=== PATIENT | male | born 1945 | race Caucasian/White ===

== ENCOUNTER → 2019-11-12 13:34 | Outpatient (BNVA) | payer OTHER, SELFPAY | PROVIDERS: Family Provider Emergency Medicine Emergency Medical Services; PCP Emergency Medicine Emergency Medical Services; Referring Provider Emergency Medicine Emergency Medical Services; Visit Provider Otolaryngology | DX: H61.21 Impacted cerumen, right ear (principal); J34.2 Deviated nasal septum; J31.0 Chronic rhinitis; F17.210 Nicotine dependence, cigarettes, uncomplicated | CPT/HCPCS: 69210; 99214 ==

== ENCOUNTER 2021-09-17 13:21 | Outpatient (CLI) | payer OTHER, SELFPAY ==
--- NOTE | 2021-09-17 13:25 | US_ITS ---
WS: [id number] ULTRASOUND RENAL TECHNIQUE: Ultrasound examination of both kidneys. CLINICAL INFORMATION: CHRONIC KIDNEY DZ STAGE 4 COMPARISON: None. FINDINGS: Technically difficult examination due to bowel gas RIGHT: Right kidney is normal in size and appearance. Echogenicity: Normal. Cortical thickness: 1.0 cm; Normal. Hydronephrosis: None. Perinephric fluid: None. Right kidney measures: 10.6 cm x 4.9 cm x 4.6 cm. LEFT: Left kidney is small and echogenic Echogenicity: Increased Cortical thickness: 0.8 cm Hydronephrosis: None. Perinephric fluid: None. Left kidney measures: 9.1 cm x 3.7 cm x 4.0 cm. Normal visualized aorta. Bladder is decompressed. US/US renal BI* [id number] IMPRESSION: 1. No hydronephrosis in either kidney. 2. Left kidney is small and echogenic. 3. Normal-appearing right kidney. 4. Bladder is decompressed.
== END 2021-09-17 13:22 | disposition home or self-care (01) ==
LOC: RAD 13:23
PROVIDERS: PCP Emergency Medicine Emergency Medical Services; Visit Provider Internal Medicine Nephrology
DX: N18.4 Chronic kidney disease, stage 4 (severe) (principal)
CPT/HCPCS: 76770

== ENCOUNTER → 2022-03-17 12:37 | Outpatient (BNVA) | payer OTHER, SELFPAY | PROVIDERS: PCP Emergency Medicine Emergency Medical Services; Referring Provider Emergency Medicine Emergency Medical Services; Visit Provider Orthopaedic Surgery | DX: M48.062 Spinal stenosis, lumbar region with neurogenic claudication (principal) | CPT/HCPCS: 72100; 99204 ==

== ENCOUNTER 2022-03-22 06:00 | Outpatient (RCR) | payer OTHER, SELFPAY | END 2022-03-29 23:59 | disposition home or self-care (01) | LOC: TPT 06:00 | PROVIDERS: PCP Emergency Medicine Emergency Medical Services; Referring Provider Emergency Medicine Emergency Medical Services; Visit Provider Emergency Medicine Emergency Medical Services | DX: M54.50 Low back pain, unspecified (principal) | CPT/HCPCS: 97110; 97163 ==

== ENCOUNTER → 2022-06-07 15:17 | Outpatient (BNVA) | payer OTHER, SELFPAY | PROVIDERS: PCP Emergency Medicine Emergency Medical Services; Visit Provider Podiatrist Foot & Ankle Surgery | DX: L60.3 Nail dystrophy (principal); E11.8 Type 2 diabetes mellitus with unspecified complications; I73.9 Peripheral vascular disease, unspecified; M20.41 Other hammer toe(s) (acquired), right foot; M20.42 Other hammer toe(s) (acquired), left foot; L30.9 Dermatitis, unspecified; E11.42 Type 2 diabetes mellitus with diabetic polyneuropathy; I83.019 Varicose veins of right lower extremity with ulcer of unspecified site; L97.919 Non-pressure chronic ulcer of unspecified part of right lower leg with unspecified severity | CPT/HCPCS: 11721; 29580; 99214 ==

== ENCOUNTER → 2022-06-14 13:02 | Outpatient (BNVA) | payer OTHER, SELFPAY | PROVIDERS: PCP Emergency Medicine Emergency Medical Services; Visit Provider Podiatrist Foot & Ankle Surgery | DX: E11.8 Type 2 diabetes mellitus with unspecified complications (principal); L60.3 Nail dystrophy; I73.9 Peripheral vascular disease, unspecified; M20.41 Other hammer toe(s) (acquired), right foot; M20.42 Other hammer toe(s) (acquired), left foot; L30.9 Dermatitis, unspecified; E11.42 Type 2 diabetes mellitus with diabetic polyneuropathy; I83.019 Varicose veins of right lower extremity with ulcer of unspecified site; L97.919 Non-pressure chronic ulcer of unspecified part of right lower leg with unspecified severity; E11.622 Type 2 diabetes mellitus with other skin ulcer | CPT/HCPCS: 99214 ==

== ENCOUNTER → 2022-06-23 13:30 | Outpatient (BNVA) | payer OTHER, SELFPAY | PROVIDERS: PCP Emergency Medicine Emergency Medical Services; Visit Provider Podiatrist Foot & Ankle Surgery | DX: E11.622 Type 2 diabetes mellitus with other skin ulcer (principal); L60.3 Nail dystrophy; I73.9 Peripheral vascular disease, unspecified; M20.41 Other hammer toe(s) (acquired), right foot; M20.42 Other hammer toe(s) (acquired), left foot; L30.9 Dermatitis, unspecified; E11.42 Type 2 diabetes mellitus with diabetic polyneuropathy; I83.019 Varicose veins of right lower extremity with ulcer of unspecified site; L97.919 Non-pressure chronic ulcer of unspecified part of right lower leg with unspecified severity | CPT/HCPCS: 99214 ==

== ENCOUNTER → 2022-07-25 12:24 | Outpatient (BNVA) | payer OTHER, SELFPAY | PROVIDERS: PCP Emergency Medicine Emergency Medical Services; Visit Provider Podiatrist Foot & Ankle Surgery | DX: E11.8 Type 2 diabetes mellitus with unspecified complications (principal); L60.3 Nail dystrophy; I73.9 Peripheral vascular disease, unspecified; M20.41 Other hammer toe(s) (acquired), right foot; M20.42 Other hammer toe(s) (acquired), left foot; L30.9 Dermatitis, unspecified; E11.42 Type 2 diabetes mellitus with diabetic polyneuropathy; I83.019 Varicose veins of right lower extremity with ulcer of unspecified site; L97.919 Non-pressure chronic ulcer of unspecified part of right lower leg with unspecified severity; E11.622 Type 2 diabetes mellitus with other skin ulcer | CPT/HCPCS: 99214 ==

== ENCOUNTER → 2022-10-31 12:28 | Outpatient (BNVA) | payer OTHER, SELFPAY | PROVIDERS: PCP Emergency Medicine Emergency Medical Services; Visit Provider Podiatrist Foot & Ankle Surgery | DX: E11.8 Type 2 diabetes mellitus with unspecified complications (principal); I73.9 Peripheral vascular disease, unspecified; E11.42 Type 2 diabetes mellitus with diabetic polyneuropathy; I83.019 Varicose veins of right lower extremity with ulcer of unspecified site; L30.9 Dermatitis, unspecified; M20.42 Other hammer toe(s) (acquired), left foot; M20.41 Other hammer toe(s) (acquired), right foot; L60.3 Nail dystrophy; L97.919 Non-pressure chronic ulcer of unspecified part of right lower leg with unspecified severity; E11.622 Type 2 diabetes mellitus with other skin ulcer | CPT/HCPCS: 99214 ==

== ENCOUNTER → 2022-12-29 12:34 | Outpatient (BNVA) | payer OTHER, SELFPAY | PROVIDERS: PCP Emergency Medicine Emergency Medical Services; Visit Provider Podiatrist Foot & Ankle Surgery | DX: I73.9 Peripheral vascular disease, unspecified (principal); E11.8 Type 2 diabetes mellitus with unspecified complications; L60.3 Nail dystrophy; M20.41 Other hammer toe(s) (acquired), right foot; M20.42 Other hammer toe(s) (acquired), left foot; L30.9 Dermatitis, unspecified; E11.42 Type 2 diabetes mellitus with diabetic polyneuropathy; I83.019 Varicose veins of right lower extremity with ulcer of unspecified site; L97.919 Non-pressure chronic ulcer of unspecified part of right lower leg with unspecified severity; E11.622 Type 2 diabetes mellitus with other skin ulcer | CPT/HCPCS: 11721 ==

== ENCOUNTER → 2023-04-05 10:14 | Outpatient (BNVA) | payer OTHER, SELFPAY | PROVIDERS: PCP Emergency Medicine Emergency Medical Services; Visit Provider Podiatrist Foot & Ankle Surgery | DX: E11.8 Type 2 diabetes mellitus with unspecified complications (principal); L60.3 Nail dystrophy; I73.9 Peripheral vascular disease, unspecified; M20.41 Other hammer toe(s) (acquired), right foot; M20.42 Other hammer toe(s) (acquired), left foot; L30.9 Dermatitis, unspecified; E11.42 Type 2 diabetes mellitus with diabetic polyneuropathy; I83.011 Varicose veins of right lower extremity with ulcer of thigh | CPT/HCPCS: 11721 ==

== ENCOUNTER → 2023-06-01 15:07 | Outpatient (BNVA) | payer OTHER, SELFPAY | PROVIDERS: PCP Emergency Medicine Emergency Medical Services; Visit Provider Nurse Practitioner Family | DX: B07.8 Other viral warts (principal); L57.8 Other skin changes due to chronic exposure to nonionizing radiation; L57.0 Actinic keratosis; D18.01 Hemangioma of skin and subcutaneous tissue; L81.4 Other melanin hyperpigmentation; D22.5 Melanocytic nevi of trunk; L85.3 Xerosis cutis; Z85.828 Personal history of other malignant neoplasm of skin; F17.210 Nicotine dependence, cigarettes, uncomplicated | CPT/HCPCS: 17000; 17003; 17110; 99203; 99406 ==

== ENCOUNTER → 2023-06-07 09:51 | Outpatient (BNVA) | payer OTHER, SELFPAY | PROVIDERS: PCP Emergency Medicine Emergency Medical Services; Visit Provider Podiatrist Foot & Ankle Surgery | DX: E11.8 Type 2 diabetes mellitus with unspecified complications (principal); L60.3 Nail dystrophy; I73.9 Peripheral vascular disease, unspecified; M20.41 Other hammer toe(s) (acquired), right foot; M20.42 Other hammer toe(s) (acquired), left foot; L30.9 Dermatitis, unspecified; E11.42 Type 2 diabetes mellitus with diabetic polyneuropathy | CPT/HCPCS: 11721 ==

== ENCOUNTER → 2023-07-06 11:08 | Outpatient (BNVA) | payer OTHER, SELFPAY | PROVIDERS: PCP Emergency Medicine Emergency Medical Services; Visit Provider Nurse Practitioner Family | DX: B07.8 Other viral warts (principal); R20.9 Unspecified disturbances of skin sensation; L57.8 Other skin changes due to chronic exposure to nonionizing radiation; L57.0 Actinic keratosis; L85.3 Xerosis cutis; L81.4 Other melanin hyperpigmentation; Z85.828 Personal history of other malignant neoplasm of skin | CPT/HCPCS: 99214 ==

== ENCOUNTER → 2023-07-20 10:58 | Outpatient (BNVA) | payer OTHER, SELFPAY | PROVIDERS: PCP Emergency Medicine Emergency Medical Services; Visit Provider Nurse Practitioner Family | DX: B07.8 Other viral warts (principal); L57.8 Other skin changes due to chronic exposure to nonionizing radiation; D18.01 Hemangioma of skin and subcutaneous tissue; L81.4 Other melanin hyperpigmentation | CPT/HCPCS: 17110; 99214 ==

== ENCOUNTER → 2023-08-03 15:00 | Outpatient (BNVA) | payer OTHER, SELFPAY | PROVIDERS: PCP Emergency Medicine Emergency Medical Services; Visit Provider Podiatrist Foot & Ankle Surgery | DX: E11.621 Type 2 diabetes mellitus with foot ulcer (principal); I73.9 Peripheral vascular disease, unspecified; L60.3 Nail dystrophy; M20.41 Other hammer toe(s) (acquired), right foot; M20.42 Other hammer toe(s) (acquired), left foot; L30.9 Dermatitis, unspecified; E11.42 Type 2 diabetes mellitus with diabetic polyneuropathy; L97.524 Non-pressure chronic ulcer of other part of left foot with necrosis of bone | CPT/HCPCS: 11044; 36415; 73630; 80053; 85025; 85651; 86140; 87070; 87075; 87077; 87186; 87205 ==

== ENCOUNTER → 2023-08-21 09:58 | Outpatient (BNVA) | payer OTHER, SELFPAY | PROVIDERS: PCP Emergency Medicine Emergency Medical Services; Visit Provider Nurse Practitioner Family | DX: D48.5 Neoplasm of uncertain behavior of skin (principal); B07.8 Other viral warts; Z85.828 Personal history of other malignant neoplasm of skin; L57.8 Other skin changes due to chronic exposure to nonionizing radiation; L81.4 Other melanin hyperpigmentation; D22.62 Melanocytic nevi of left upper limb, including shoulder; L85.3 Xerosis cutis; L57.0 Actinic keratosis; Z72.0 Tobacco use | CPT/HCPCS: 11102; 17000; 17110; 99213 ==

== ENCOUNTER 2023-09-18 15:05 | Outpatient (CLI) | payer OTHER, SELFPAY ==
--- NOTE | 2023-09-18 15:16 | XRR_ITS ---
PROCEDURE INFORMATION: Exam: XR Left Foot Exam date and time: 09/18/2023 3:28 PM Age: 78 years old Clinical indication: Other: Nonhealing ulcer of left great toe; Additional info: Nonhealing ulcer of left great toe; Bone exposure; R/O osteo TECHNIQUE: Imaging protocol: Radiologic exam of the left foot. Views: 3 or more views. COMPARISON: CR XR foot LT min 3V* [id number] 08/03/2023 3:11 PM FINDINGS: Bones/joints: Mild hallux valgus deformity with superimposed osteoarthritis. Partial resorption of the bony ungual tuft of the distal phalanx of the great toe probably represents osteomyelitis. Soft tissues: Normal. XR/XR foot LT min 3V* [id number] IMPRESSION: Likely osteomyelitis involving the 1st distal phalanx.
[2023-09-18 15:33] LABS: Basophils # 0.1 10^3/uL (0.0-0.1); Basophils % 1.3 %; Eosinophils # 0.2 10^3/uL (0.0-0.8); Eosinophils % 3.6 %; Hematocrit 47.6 % (37-53); Lymphocytes # 0.9 10^3/uL (0.8-4.8); Lymphocytes % 17.7 %; Mean Platelet Volume 10.7 fL (7.4-10.4); Monocytes # 0.4 10^3/uL (0.2-0.9); Monocytes % 7.1 %; Neutrophils # 3.57 10^3/uL (1.8-7.7); Neutrophils % 68.6 %; Nucleated Red Blood Cells % 0 %; Platelet Count 182 10^3/cmm (157-399); Red Blood Count 4.76 10^6/uL (3.85-5.65); Red Cell Distribution Width 14.8 % (12.1-15.1); White Blood Count 5.21 10^3/uL (3.29-11.43)
[2023-09-18 15:58] LABS: Alanine Aminotransferase 15 U/L (0-41); Albumin Level 4.2 g/dL (3.5-5.2); Alkaline Phosphatase 116 U/L (40-130); Aspartate Amino Transferase 17 U/L (0-40); Blood Urea Nitrogen 43 mg/dL (8-23); Calcium 10.4 mg/dL (8.5-10.5); Carbon Dioxide 23 mmol/L (22-29); Chloride 102 mmol/L (98-107); Globulin 4.1 g/dL (1.3-4.6); Glucose 125 mg/dL (65-115); Osmolality Calculated 296 mOsm/kg (285-295); Sodium 137 mmol/L (136-145); Total Bilirubin 0.7 mg/dL (0.15-1.2); Total Protein 8.3 g/dL (6.6-8.7)
[2023-09-18 16:28] LABS: Estmated Average Glucose 163; Hemoglobin A1C 7.3 % (4.0-6.0)
== END 2023-09-18 15:06 | disposition home or self-care (01) ==
PROVIDERS: PCP Emergency Medicine Emergency Medical Services; Visit Provider Thoracic Surgery (Cardiothoracic Vascular Surgery)
DX: E11.52 Type 2 diabetes mellitus with diabetic peripheral angiopathy with gangrene (principal); E11.621 Type 2 diabetes mellitus with foot ulcer; L97.524 Non-pressure chronic ulcer of other part of left foot with necrosis of bone
CPT/HCPCS: 11044; 73630; 80053; 83036; 85025; 86140; 87070; 87077; 87176; 87186; 87205; 99213

== ENCOUNTER → 2023-09-25 13:49 | Outpatient (BNVA) | payer OTHER, SELFPAY | PROVIDERS: PCP Emergency Medicine Emergency Medical Services; Visit Provider Thoracic Surgery (Cardiothoracic Vascular Surgery) | DX: E11.52 Type 2 diabetes mellitus with diabetic peripheral angiopathy with gangrene (principal); E11.621 Type 2 diabetes mellitus with foot ulcer; L97.526 Non-pressure chronic ulcer of other part of left foot with bone involvement without evidence of necrosis | CPT/HCPCS: 11042 ==

== ENCOUNTER → 2023-10-02 15:03 | Outpatient (BNVA) | payer OTHER, SELFPAY | PROVIDERS: PCP Emergency Medicine Emergency Medical Services; Visit Provider Thoracic Surgery (Cardiothoracic Vascular Surgery) | DX: E11.52 Type 2 diabetes mellitus with diabetic peripheral angiopathy with gangrene (principal); E11.621 Type 2 diabetes mellitus with foot ulcer; L97.524 Non-pressure chronic ulcer of other part of left foot with necrosis of bone | CPT/HCPCS: 11044 ==

== ENCOUNTER → 2023-10-03 14:57 | Outpatient (BNVA) | payer OTHER, SELFPAY | PROVIDERS: PCP Emergency Medicine Emergency Medical Services; Visit Provider Nurse Practitioner Family | DX: B07.8 Other viral warts (principal); Z85.828 Personal history of other malignant neoplasm of skin; L57.0 Actinic keratosis | CPT/HCPCS: 17000; 17110; 99213 ==

== ENCOUNTER 2023-10-11 15:14 | Outpatient (CLI) | payer OTHER, SELFPAY ==
[2023-10-11 15:47] LABS: Basophils # 0.1 10^3/uL (0.0-0.1); Basophils % 1.1 %; Eosinophils # 0.2 10^3/uL (0.0-0.8); Eosinophils % 3.7 %; Hematocrit 45.3 % (37-53); Lymphocytes # 0.5 10^3/uL (0.8-4.8); Mean Corpuscular HGB Conc 32.7 g/dL (30-55); Mean Corpuscular Hemoglobin 32.7 pg (27-33); Mean Corpuscular Volume 100.2 fl (82-101); Monocytes # 0.3 10^3/uL (0.2-0.9); Monocytes % 6.2 %; Neutrophils # 4.34 10^3/uL (1.8-7.7); Neutrophils % 79.6 %; Nucleated Red Blood Cells % 0 %; Platelet Count 141 10^3/cmm (157-399); Red Blood Count 4.52 10^6/uL (3.85-5.65); Red Cell Distribution Width 14.6 % (12.1-15.1); White Blood Count 5.45 10^3/uL (3.29-11.43)
[2023-10-11 16:28] LABS: Alanine Aminotransferase 11 U/L (0-41); Albumin Level 3.9 g/dL (3.5-5.2); Alkaline Phosphatase 107 U/L (40-130); Anion Gap 20.3 (5-19); Aspartate Amino Transferase 13 U/L (0-40); Blood Urea Nitrogen 48 mg/dL (8-23); Calcium 10.2 mg/dL (8.5-10.5); Carbon Dioxide 21 mmol/L (22-29); Chloride 103 mmol/L (98-107); Glucose 129 mg/dL (65-115); Osmolality Calculated 304 mOsm/kg (285-295); Potassium 4.3 mmol/L (3.5-5.1); Sodium 140 mmol/L (136-145); Total Bilirubin 0.6 mg/dL (0.15-1.2); Total Protein 7.9 g/dL (6.6-8.7)
== END 2023-10-11 15:15 | disposition home or self-care (01) ==
LOC: LAB 15:15
PROVIDERS: PCP Emergency Medicine Emergency Medical Services; Visit Provider Nurse Practitioner Family
DX: E11.52 Type 2 diabetes mellitus with diabetic peripheral angiopathy with gangrene (principal); E11.621 Type 2 diabetes mellitus with foot ulcer; L97.522 Non-pressure chronic ulcer of other part of left foot with fat layer exposed
CPT/HCPCS: 11042; 36415; 80053; 85025; 99212

== ENCOUNTER → 2023-10-18 13:05 | Outpatient (BNVA) | payer OTHER, SELFPAY | PROVIDERS: PCP Emergency Medicine Emergency Medical Services; Visit Provider Thoracic Surgery (Cardiothoracic Vascular Surgery) | DX: E11.52 Type 2 diabetes mellitus with diabetic peripheral angiopathy with gangrene (principal); E11.621 Type 2 diabetes mellitus with foot ulcer; L97.524 Non-pressure chronic ulcer of other part of left foot with necrosis of bone | CPT/HCPCS: 11044 ==

== ENCOUNTER → 2023-10-23 10:55 | Outpatient (BNVA) | payer OTHER, SELFPAY | PROVIDERS: PCP Emergency Medicine Emergency Medical Services; Visit Provider Thoracic Surgery (Cardiothoracic Vascular Surgery) | DX: E11.621 Type 2 diabetes mellitus with foot ulcer (principal); E11.52 Type 2 diabetes mellitus with diabetic peripheral angiopathy with gangrene; L97.524 Non-pressure chronic ulcer of other part of left foot with necrosis of bone | CPT/HCPCS: 11044; 80048 ==

== ENCOUNTER 2023-11-11 10:39 | Emergency (ER) | payer OTHER, SELFPAY ==
[2023-11-11 11:04] VITALS: BP 159/82; PULSE 104; RESP 18; TEMP 36.8; O2SAT 95; BMI 25.4
[2023-11-11 11:19] LABS: Basophils % 0.4 %; Eosinophils % 0.2 %; Hematocrit 41.1 % (37-53); Lymphocytes # 0.3 10^3/uL (0.8-4.8); Lymphocytes % 3.9 %; Mean Corpuscular HGB Conc 32.4 g/dL (30-55); Mean Corpuscular Hemoglobin 32.8 pg (27-33); Mean Corpuscular Volume 101.2 fl (82-101); Mean Platelet Volume 11.3 fL (7.4-10.4); Monocytes # 0.6 10^3/uL (0.2-0.9); Monocytes % 6.6 %; Neutrophils # 7.38 10^3/uL (1.8-7.7); Neutrophils % 88.1 %; Nucleated Red Blood Cells % 0 %; Platelet Count 128 10^3/cmm (157-399); Red Blood Count 4.06 10^6/uL (3.85-5.65); Red Cell Distribution Width 14.3 % (12.1-15.1); White Blood Count 8.38 10^3/uL (3.29-11.43)
[2023-11-11 11:25] VITALS: BP 159/82; PULSE 84; RESP 15; O2SAT 95
[2023-11-11 11:29] LABS: Add Urine Microscopic? YES; Bilirubin Urine Neg (Negative); Blood Urine 2+ (Negative); Glucose Urine UA 4+ (Normal); Ketones Urine Negative (Negative); Leukocyte Esterase Urine Negative (Negative); Nitrate Urine Negative (Negative); Protein Urine 1+ (Negative); Urine Appearance Clear (CLEAR); Urine Color Straw (Yellow); Urobilinogen Urine Norm (Negative); pH Urine 5 (5-7)
[2023-11-11 11:30] LABS: Add Urine Culture? No; Bacteria Urine TRACE /hpf; Mucus Urine 1+ /hpf; RBC Urine 0-4 /hpf (0-2); WBC Urine RARE /hpf (0-5)
[2023-11-11 11:33] LABS: Alanine Aminotransferase 7 U/L (0-41); Albumin Level 3.2 g/dL (3.5-5.2); Alkaline Phosphatase 110 U/L (40-130); Aspartate Amino Transferase 11 U/L (0-40); Blood Urea Nitrogen 68 mg/dL (8-23); Calcium 10.6 mg/dL (8.5-10.5); Carbon Dioxide 21 mmol/L (22-29); Chloride 101 mmol/L (98-107); Globulin 4.2 g/dL (1.3-4.6); Glucose 164 mg/dL (65-115); Osmolality Calculated 305 mOsm/kg (285-295); Sodium 136 mmol/L (136-145); Total Bilirubin 0.6 mg/dL (0.15-1.2); Total Protein 7.4 g/dL (6.6-8.7)
[2023-11-11 11:34] LABS: Anion Gap 18.2 (5-19); Potassium 4.2 mmol/L (3.5-5.1)
--- NOTE | 2023-11-11 11:49 | ED_ITS ---
HPI - Extremity Problem 2 General: Chief complaint: Extremity Problem,Nontraumatic Stated complaint: Left big toe pain Time Seen by Provider: 11/11/23 11:00 History of Present Illness: Patient presents to the ER with complaints of left foot pain. Patient states he has been seeing the wound clinic every week but has missed the last 2 appointments secondary to weather. Patient is says he is only taken Tylenol for pain and the pain is increased over the last several months. There is been no recent drastic acute change in pain other than the slow progression to worsening pain. Patient now rates the pain 9 out of 10 and says it hurts to walk on the foot. Patient denies any fevers chills purulent drainage streaking etc. Review of Systems 2 General: Reports: 10 or more systems reviewed and unremarkable except in HPI and below PFSH ED 2 PFSH: Medical History Type 2 diabetes mellitus with foot ulcer Family History Other Diabetes Social History Smoking and tobacco/nicotine status: former use of tobacco/nicotine Alcohol intake: never Physical Exam 2 Const: COMMON NORMALS: no acute distress, average body habitus, patient oriented x3, no limitations, healthy appearing, alert and well nourished Neck/C-Spine: COMMON NORMALS: no JVD Chest: COMMONS NORMALS: normal inspection of the chest and normal palpation of entire chest wall Resp: COMMON NORMALS: normal respiratory effort, No retractions, No use of accessory muscles and clear to auscultation bilaterally AUSCULTATION: clear to auscultation bilaterally Cardio: COMMON NORMALS: no JVD, regular rate, regular rhythm, S1 normal heart sound present, S2 normal heart sound present, No gallops present (Cardio), No clicks present (Cardio), No murmurs present (Cardio) and No rub (Cardio) R ATE: regular rate RHYTHM: regular rhythm HEART SOUNDS: S1 normal heart sound present and S2 normal heart sound present GI: COMMON NORMALS: Normal to inspection, nondistended, normoactive bowel sounds present, Soft to palpation, non-tender, No hepatosplenomegaly present and no masses PALPATION: Yes Soft to palpation and Yes No hepatosplenomegaly present Extremity: OTHER: Bilateral lower extremities shows significant signs for peripheral vascular disease and diabetic ulcers. No cellulitic type changes or purulent drainage noted at this time. Neuro: COMMON NORMALS: patient oriented x3 SENSORIUM/ORIENTATION: Yes alert Course 2 Vital Signs: Vital signs: Vital Signs Temperature 98.2 F 11/11/23 11:04 Pulse Rate 84 11/11/23 11:25 Respiratory Rate 15 11/11/23 11:25 Blood Pressure 159/82 11/11/23 11:25 Pulse Oximetry 95 11/11/23 11:25 Oxygen Delivery Me thod Room Air 11/11/23 11:25 MDM - Extremity (Nontraumatic) Medical Decision Making Patient has worsening left foot pain. Patient sees the wound care weekly business the last 2 appointments. Patient had a CBC CMP and UA drawn which were benign for the patient. Patient does have renal disease. Patient's not currently on any pain medicine other than Tylenol. Patient will be placed on hydrocodone to use for extreme pain. Patient is to follow-up with the wound care clinic for further evaluation and treatment. Differential Diagnosis Unlikely herpes zoster, gout, cellulitis, superficial thrombophlebitis, deep venous thrombosis of upper extremity, lower extremity edema or deep vein thrombosis of lower extremity Lab Data 11/11/23 11:10 11/11/23 11:10 Laboratory Results WBC 8.38 10^3/uL (3.29-11.43) 11/11/23 11:10 RBC 4.06 10^6/uL (3.85-5.65) 11/11/23 11:10 Hgb 13.30 g/dL (11.27-16.99) 11/11/23 11:10 Hct 41.1 % (37-53) 11/11/23 11:10 MCV 101.2 fl (82-101) H 11/11/23 11:10 MCH 32.8 pg (27-33) 11/11/23 11:10 MCHC 32.4 g/dL (30-55) 11/11/23 11:10 RDW 14.3 % (12.1-15.1) 11/11/23 11:10 Plt Count 128 10^3/cmm (157-399) L 11/11/23 11:10 MPV 11.3 fL (7.4-10.4) H 11/11/23 11:10 Neut % (Auto) 88.1 % 11/11/23 11:10 Lymph % (Auto) 3.9 % 11/11/23 11:10 [place] % (Auto) 6.6 % 11/11/23 11:10 Eos % (Auto) 0.2 % 11/11/23 11:10 Baso % (Auto) 0.4 % 11/11/23 11:10 Neut # (Auto) 7.38 10^3/uL (1.8-7.7) 11/11/23 11:10 Lymph # (Auto) 0.3 10^3/uL (0.8-4.8) L 11/11/23 11:10 [place] # (Auto) 0.6 10^3/uL (0.2-0.9) 11/11/23 11:10 Eos # (Auto) 0.0 10^3/uL (0.0-0.8) 11/11/23 11:10 Baso # (Auto) 0.0 10^3/uL (0.0-0.1) 11/11/23 11:10 Nucleated RBC % (auto) 0 % 11/11/23 11:10 Nucleated RBCs # 0.0 /100WBC 11/11/23 11:10 Sodium 136 mmol/L (136-145) 11/11/23 11:10 Potassium 4.2 mmol/L (3.5-5.1) 11/11/23 11:10 Chloride 101 mmol/L (98-107) 11/11/23 11:10 Carbon Dioxide 21 mmol/L (22-29) L 11/11/23 11:10 Anion Gap 18.2 (5-19) 11/11/23 11:10 BUN 68 mg/dL (8-23) H 11/11/23 11:10 Creatinine 4.4 mg/dL (0.7-1.2) H 11/11/23 11:10 GFR Calculation Not Reportable 11/11/23 11:10 Glucose 164 mg/dL (65-115) H 11/11/23 11:10 Calculated Osmolality 305 mOsm/kg (285-295) H 11/11/23 11:10 Calcium 10.6 mg/dL (8.5-10.5) H 11/11/23 11:10 Total Bilirubin 0.6 mg/dL (0.15-1.2) 11/11/23 11:10 AST 11 U/L (0-40) 11/11/23 11:10 ALT 7 U/L (0-41) 11/11/23 11:10 Alkaline Phosphatase 110 U/L (40-130) 11/11/23 11:10 Total Protein 7.4 g/dL (6.6-8.7) 11/11/23 11:10 Albumin 3.2 g/dL (3.5-5.2) L 11/11/23 11:10 Globulin 4.2 g/dL (1.3-4.6) 11/11/23 11:10 Urine Color Straw (Yellow) 11/11/23 10:35 Urine Appearance Clear (CLEAR) 11/11/23 10:35 Urine pH 5 (5-7) 11/11/23 10:35 Ur Specific [place] 1.010 (1.005-1.030) 11/11/23 10:35 Urine Protein 1+ (Negative) H 11/11/23 10:35 Urine Glucose (UA) 4+ (Normal) H 11/11/23 10:35 Urine Ketones Negative (Negative) 11/11/23 10:35 Urine Blood 2+ (Negative) H 11/11/23 10:35 Urine Nitrate Negative (Negative) 11/11/23 10:35 Urine Bilirubin Neg (Negative) 11/11/23 10:35 Urine Urobilinogen Norm mg/dL (Negative) 11/11/23 10:35 Ur Leukocyte Esterase Negative (Negative) 11/11/23 10:35 Urine RBC 0-4 /hpf (0-2) H 11/11/23 10:35 Urine WBC Rare /hpf (0-5) 11/11/23 10:35 Ur Squamous Epith Cells None /hpf (0-5) 11/11/23 10:35 Amorphous Sediment Not Reportable 11/11/23 10:35 Urine Bacteria Trace /hpf (NONE) 11/11/23 10:35 Urine Mucus 1+ /hpf 11/11/23 10:35 All radiology interpretation(s) finalized by discharge Discharge Plan Discharge Patient Disposition: Home Clinical Impression: Peripheral neuropathy, Peripheral vascular disease Condition: Stable Prescriptions: No Action alogliptin 12.5 mg tablet 12.5 mg PO QDAY atorvastatin 20 mg tablet 20 mg PO QDAY acarbose 25 mg tablet 25 mg PO TID tamsulosin 0.4 mg capsule 0.4 mg PO QDAY amlodipine benzoate PO DAILY clopidogrel 75 mg tablet 75 mg PO QDAY hydralazine 25 mg tablet 25 mg PO TID cholecalciferol (vitamin D3) [Vitamin D3] 2,000 unit tablet 1,000 unit PO QDAY aspirin [Adult Aspirin Regimen] 81 mg tablet,delayed release (DR/EC) 81 mg PO QDAY clonidine HCl 0.1 mg tablet 0.05 mg PO BID (DME) Diabetic shoes with 3 inserts See Rx Instructions .Route .MEDSUPPLY Qty: 1 0RF Rx Instructions: As directed urea 40 % cream 1 applic topical TID Qty: 198 4RF (DME) Compression socks bilaterally See Rx Instructions .Route .MEDSUPPLY Qty: 1 0RF Rx Instructions: As directed mupirocin 2 % ointment 1 applic topical BID 14 Days Qty: 22 2RF levofloxacin 250 mg tablet 250 mg PO .every other day 7 Days Qty: 4 0RF ammonium lactate 12 % cream 1 applic topical BID 90 Days Qty: 385 0RF (DME) diabetic shoes with 3 inserts See Rx Instructions .Route .MEDSUPPLY Qty: 1 0RF Rx Instructions: As directed levofloxacin 250 mg tablet 250 mg PO Q48H Qty: 12 0RF (DME) Diabetic Shoes with inserts See Rx Instructions .Route .MEDSUPPLY Qty: 1 0RF Rx Instructions: As directed by CLAUDE&O Discharge Orders: Discharge ED (Routine); Ordered 11/11/23 Ordered By: Igor Fischer Referrals: Juan Thomas DO [Primary Care Provider] - Patient Instructions: Opioid Safety, Pain Management, Peripheral Neuropathy, Peripheral Vascular Disease (ED) Activity Restrictions/Additional Instructions: Take all medicine as directed. Please follow-up with the wound care clinic and family practice physician within next week for further evaluation and treatment. Coding Level of Care Code ED Cardiac Nurse Practitioner for Carol Ross
[2023-11-11 12:02] VITALS: BP 159/82; PULSE 84; RESP 15; TEMP 36.8; O2SAT 95
== END 2023-11-11 12:23 | disposition home or self-care (01) ==
PROVIDERS: Emergency Provider Emergency Medicine; PCP Emergency Medicine Emergency Medical Services
DX: I73.9 Peripheral vascular disease, unspecified (principal); E11.42 Type 2 diabetes mellitus with diabetic polyneuropathy; Z87.891 Personal history of nicotine dependence; Z79.82 Long term (current) use of aspirin; Z79.02 Long term (current) use of antithrombotics/antiplatelets
CPT/HCPCS: 36415; 80053; 81001; 85025; 99283

== ENCOUNTER → 2023-11-13 13:02 | Outpatient (BNVA) | payer OTHER, SELFPAY | PROVIDERS: PCP Emergency Medicine Emergency Medical Services; Visit Provider Thoracic Surgery (Cardiothoracic Vascular Surgery) | DX: E11.52 Type 2 diabetes mellitus with diabetic peripheral angiopathy with gangrene (principal); E11.621 Type 2 diabetes mellitus with foot ulcer; L97.522 Non-pressure chronic ulcer of other part of left foot with fat layer exposed | CPT/HCPCS: 11042 ==

== ENCOUNTER 2023-11-20 15:41 | Inpatient (IN) | payer OTHER, SELFPAY ==
[2023-11-20] VITALS (18 sets, daily range): BP systolic 117–164; BP diastolic 66–99; PULSE 84–103; RESP 16–20; TEMP 36.1–36.9; O2SAT 92–100; BMI 25.4
--- NOTE | 2023-11-20 10:00 | ECG_ITS ---
[facility] Test Date: 2023-11-20 Pat Name: Oriana Shah Department: Room: Gender: Male Vehicle Window Tinter: : 1945 Requested By: Haydee Alanis Order Number: [id number] Hernández MD: Jones Lee M.D. Measurements Intervals [place] Rate: 90 P: 0 ID: 0 QRS: 24 QRSD: 129 T: -37 QT: 386 QTc: 475 Interpretive Statements ATRIAL FIBRILLATION WITH ABERRANT CONDUCTION OR VENTRICULAR PREMATURE COMPLEXES POSSIBLE RIGHT VENTRICULAR CONDUCTION DELAY [RSR (QR) IN V1/V2] SEPTAL MYOCARDIAL INFARCTION , OF INDETERMINATE AGE [40+ ms Q WAVE IN V1/V2] MODERATE T-WAVE ABNORMALITY, CONSIDER ANTERIOR ISCHEMIA [-0.1+ mV T-WAVE IN V3/V4] Compared to ECG 02/05/2018 14:15:53 Ventricular premature complex(es) now present Aberrant conduction of supraventricular beat(s) now present Myocardial infarct finding now present T-wave abnormality now present Incomplete right bundle-branch block no longer present ST (T wave) deviation no longer present Electronically Signed On 11-20-2023 11:46:34 MECHANICAL PRODUCT DESIGN ENGINEER by Jones Lee M.D. [id number]
--- NOTE | 2023-11-20 10:00 | P.ANESASSM_ITS ---
Pre-Anesthetic Assessment Height/Weight: Height 1.73 m Weight 75.75 kg Temp Pulse Resp BP Pulse Ox O2 Del Method 97.0 F L 103 H 20 H 133/76 96 Room Air 11/20/23 09:31 11/20/23 10:30 11/20/23 10:30 11/20/23 10:30 11/20/23 10:30 11/20/23 10:30 Preop Diagnosis: Gangrene left foot Operation Date: 11/20/23 11:00 Proposed Procedures p Left below knee amputation (67074) with possibility of left above knee amputation (96384) [id number],E11.621,I73.9(Left) - Durga Thomas MD s with possibility of left above knee amputation (20050)(Left) - Durga Thomas MD Familial anesthetic complications: None Was Beta Onelia taken within 24 hours: N/A Was Clonidine taken within 24 hours: N/A Last intake: Intake Last Liquid Date 11/19/23 Last Liquid Time 20:00 Last Solid Date 11/19/23 Last Solid Time 23:00 Social Tobacco and No alcohol Exam alert, oriented x 3, clear to auscultation bilaterally and regular rate & rhythm Airway Mallampati: Class II Dentition: chipped Chronic Renal Insufficiency Metabolic Diabetes Mellitus Anesthetic Plan ASA status: 4 Anesthesia: General and Regional (specify below) Risk of > 500 ml blood loss (7ml/kg in children): No Medications/Allergies Home Medications Medication Instructions Recorded Confirmed Last Taken Type acarbose 25 mg tablet 25 mg PO TID 11/12/19 11/17/23 11/17/23 History alogliptin 12.5 mg tablet 12.5 mg PO QDAY 11/12/19 11/17/23 11/17/23 History amlodipine benzoate 1 100 ml PO DAILY 11/12/19 11/20/23 11/20/23 History aspirin 81 mg tablet,delayed 81 mg PO QDAY 11/12/19 11/17/23 11/16/23 History release (Adult Aspirin Regimen) atorvastatin 20 mg tablet 20 mg PO QDAY 11/12/19 11/17/23 Unknown History cholecalciferol (vitamin D3) 50 1,000 unit PO QDAY 11/12/19 11/17/23 Unknown History mcg (2,000 unit) tablet (Vitamin D3) clopidogrel 75 mg tablet 75 mg PO QDAY 11/12/19 11/17/23 11/16/23 History hydralazine 25 mg tablet 25 mg PO TID 11/12/19 11/17/23 Unknown History tamsulosin 0.4 mg capsule 0.4 mg PO QDAY 11/12/19 11/17/23 Unknown History Diabetic shoes with 3 inserts #1 ea 08/19/21 08/03/23 Unknown Rx clonidine HCl 0.1 mg tablet 0.05 mg PO BID 08/19/21 11/17/23 Unknown History Diabetic Shoes with inserts #1 ea 06/08/22 08/03/23 Unknown Rx urea 40 % topical cream 1 applic topical TID #198 grams 06/23/22 11/17/23 Unknown Rx Compression socks bilaterally #1 ea 07/26/22 08/03/23 Unknown Rx ammonium lactate 12 % topical cream 1 applic topical BID callus of 12/29/22 11/17/23 Unknown Rx foot 3 months #385 grams diabetic shoes with 3 inserts #1 ea 12/29/22 08/03/23 Unknown Rx mupirocin 2 % topical ointment 1 applic topical BID 2 weeks #22 06/07/23 11/17/23 Unknown Rx grams levofloxacin 250 mg tablet 250 mg PO .every other day 7 days 10/12/23 10/12/23 Unknown Rx #4 tabs levofloxacin 250 mg tablet 250 mg PO Q48H #12 tabs 10/23/23 11/17/23 Unknown Rx hydrocodone 5 mg-acetaminophen 325 1 tab PO Q6H PRN pain #14 tabs 11/11/23 11/20/23 Unknown Rx mg tablet ibuprofen 125 mg-acetaminophen 250 1 tab PO Q8H PRN Pain 11/20/23 11/20/23 11/20/23 History mg tablet (Advil Dual Action) Allergies Allergy/AdvReac Type Severity Reaction Status Date / Time Sulfa (Sulfonamide Allergy Mild ALGY-Hives Verified 08/03/23 14:46 Antibiotics) Current Medications Generic Name Dose Route Start Last Admin Trade Name Freq PRN Reason Stop Dose Admin Sodium Chloride 1,000 mls @ 30 mls/hr 11/20/23 09:15 11/20/23 10:36 Sodium Chloride 0.9% IV 11/21/23 09:14 30 mls/hr .Q24H ROSALIO Administration Midazolam HCl 2 mg 11/20/23 09:13 11/20/23 10:20 Midazolam 1 Mg/Ml Inj 2 Ml IVP 2 mg Q5M PRN Administration Preop Anxiety PFSH Anesthesia Medical History Type 2 diabetes mellitus with foot ulcer Family History Other Diabetes Social History Smoking and tobacco/nicotine status: former use of tobacco/nicotine Alcohol intake: never Data Anesthesia 11/20/23 09:53 11/20/23 09:53 Short CBC 11/20/23 Range/Units 09:53 WBC 12.31 H (3.29-11.43) 10^3/uL Hgb 12.30 (11.27-16.99) g/dL Hct 38.0 (37-53) % MCV 100.8 (82-101) fl Plt Count 202 (157-399) 10^3/cmm Neut % (Auto) 88.5 % Neut # (Auto) 10.89 H (1.8-7.7) 10^3/uL BMP 11/20/23 09:53 Sodium 142 Potassium 4.2 Chloride 105 Carbon Dioxide 19 L BUN 68 H Creatinine 4.1 H Glucose 147 H Calcium 10.8 H Liver Function 11/20/23 Range/Units 09:53 Total Bilirubin 0.5 (0.15-1.2) mg/dL AST 17 (0-40) U/L ALT 11 (0-41) U/L Alkaline Phosphatase 133 H (40-130) U/L Albumin 3.6 (3.5-5.2) g/dL Blood Bank 11/20/23 09:53 Blood Type A Positive Rho(D) Type Rh positive Antibody Screen Negative Cardiac Studies: 2 No Data to Display
[2023-11-20 10:04] LABS: Glucose Point of Care 161 mg/dL (70-110)
[2023-11-20 10:04] LABS: Basophils # 0.1 10^3/uL (0.0-0.1); Basophils % 0.5 %; Eosinophils % 0.2 %; Lymphocytes # 0.5 10^3/uL (0.8-4.8); Lymphocytes % 4.2 %; Mean Corpuscular HGB Conc 32.4 g/dL (30-55); Mean Corpuscular Hemoglobin 32.6 pg (27-33); Mean Corpuscular Volume 100.8 fl (82-101); Mean Platelet Volume 10.5 fL (7.4-10.4); Monocytes # 0.5 10^3/uL (0.2-0.9); Monocytes % 4.4 %; Neutrophils # 10.89 10^3/uL (1.8-7.7); Neutrophils % 88.5 %; Nucleated Red Blood Cells % 0 %; Platelet Count 202 10^3/cmm (157-399); Red Blood Count 3.77 10^6/uL (3.85-5.65); Red Cell Distribution Width 14.1 % (12.1-15.1); White Blood Count 12.31 10^3/uL (3.29-11.43)
--- NOTE | 2023-11-20 10:14 | P.HP_ITS ---
Providers/Chief Complaint 2 Admitting Physician: Dr. Thomas/cardiothoracic surgery Primary Care Provider: Juan Thomas DO Chief Complaint: S93.309A, E11.621, I73.9 History of Present Illness Oriana Shah is a 78 year old male with been caring for in wound care services [facility] clinic. We have been caring for a left foot ulcer since September of last year. Mr. Shah has severe renal insufficiency with a creatinine over 4. He has severe peripheral arterial disease by clinical exam. Prior left foot x-rays reveal evidence for osteomyelitis involving the great toe distal phalanx. Related to his renal insufficiency, formal contrast imaging studies could not be performed though it was clearly evident that he had substantial arterial disease. Not surprising, his wound has continued to worsen and now he has gangrenous changes to the left forefoot along with skin changes up to the level of the knee. For this reason, I recommend he be considered for a left above- knee amputation. We will help initially to be able to manage the wounds locally at the foot realizing that a BKA may be required, though the ischemic changes have clearly progressed fairly rapidly. He has been previously evaluated by nephrology and has been told that dialysis may be pending. Unfortunately, he continues to smoke unabated despite previous counseling. He resides along in [facility] and arrangements have been made for shelter care inpatient treatment after hospitalization discharge. On today's presentation for his planned amputation, he did present with his brother who resides in [facility]. Prior to this encounter, during all of his wound care clinic visits, he has arrived alone. Review of Systems 2 Const: Denies: fever(s), chills, change in appetite, change in weight, fatigue or night sweats Eyes: Denies: change in vision or blurry vision ENMT: Denies: odynophagia or hoarseness Card: Denies: chest pain, palpitations, irregular heart rhythm or edema Resp: Denies: dyspnea or productive cough GI: Denies: abdominal pain, nausea, vomiting, dysphagia, heartburn or change in bowel habits : Denies: difficulty urinating, dysuria, urinary frequency, urinary urgency or urinary hesitancy Musc: Reports: extremity pain and extremity swelling Skin/Breast: Reports: changes in skin color (Left lower extremity) Neuro: Denies: headache(s) or sensory changes Psych: Denies: anxiety, depression or change in appetite Endo: Denies: polyuria, polydipsia or cold intolerance Sj/Lymph: Denies: easy bruising, easy bleeding, petechiae or enlarged lymph nodes Medications/Allergies Home Medications Medication Instructions Recorded Confirmed Last Taken Type acarbose 25 mg tablet 25 mg PO TID 11/12/19 11/17/23 11/17/23 History alogliptin 12.5 mg tablet 12.5 mg PO QDAY 11/12/19 11/17/23 11/17/23 History amlodipine benzoate 1 100 ml PO DAILY 11/12/19 11/20/23 11/20/23 History aspirin 81 mg tablet,delayed 81 mg PO QDAY 11/12/19 11/17/23 11/16/23 History release (Adult Aspirin Regimen) atorvastatin 20 mg tablet 20 mg PO QDAY 11/12/19 11/17/23 Unknown History cholecalciferol (vitamin D3) 50 1,000 unit PO QDAY 11/12/19 11/17/23 Unknown History mcg (2,000 unit) tablet (Vitamin D3) clopidogrel 75 mg tablet 75 mg PO QDAY 11/12/19 11/17/23 11/16/23 History hydralazine 25 mg tablet 25 mg PO TID 11/12/19 11/17/23 Unknown History tamsulosin 0.4 mg capsule 0.4 mg PO QDAY 11/12/19 11/17/23 Unknown History Diabetic shoes with 3 inserts #1 ea 08/19/21 08/03/23 Unknown Rx clonidine HCl 0.1 mg tablet 0.05 mg PO BID 08/19/21 11/17/23 Unknown History Diabetic Shoes with inserts #1 ea 06/08/22 08/03/23 Unknown Rx urea 40 % topical cream 1 applic topical TID #198 grams 06/23/22 11/17/23 Unknown Rx Compression socks bilaterally #1 ea 07/26/22 08/03/23 Unknown Rx ammonium lactate 12 % topical cream 1 applic topical BID callus of 12/29/22 11/17/23 Unknown Rx foot 3 months #385 grams diabetic shoes with 3 inserts #1 ea 12/29/22 08/03/23 Unknown Rx mupirocin 2 % topical ointment 1 applic topical BID 2 weeks #22 06/07/23 11/17/23 Unknown Rx grams levofloxacin 250 mg tablet 250 mg PO .every other day 7 days 10/12/23 10/12/23 Unknown Rx #4 tabs levofloxacin 250 mg tablet 250 mg PO Q48H #12 tabs 10/23/23 11/17/23 Unknown Rx hydrocodone 5 mg-acetaminophen 325 1 tab PO Q6H PRN pain #14 tabs 11/11/23 11/20/23 Unknown Rx mg tablet ibuprofen 125 mg-acetaminophen 250 1 tab PO Q8H PRN Pain 11/20/23 11/20/23 11/20/23 History mg tablet (Advil Dual Action) Allergies Allergy/AdvReac Type Severity Reaction Status Date / Time Sulfa (Sulfonamide Allergy Mild ALGY-Hives Verified 08/03/23 14:46 Antibiotics) PFSH Acute 2 PFSH: Medical History Type 2 diabetes mellitus with foot ulcer Family History Other Diabetes Social History Smoking and tobacco/nicotine status: former use of tobacco/nicotine Alcohol intake: never Vitals/I&O/Wt Last Vital Signs Temp 97.0 F L 11/20/23 09:31 Pulse 94 11/20/23 09:31 Resp 16 11/20/23 09:31 BP 164/76 11/20/23 09:31 Pulse Ox 100 11/20/23 09:31 O2 Del Method Room Air 11/20/23 09:32 Weight last 48 hrs Weight 167 lb Physical Exam 2 Const: COMMON NORMALS: patient oriented x3 and alert O RIENTATION/CONSCIOUSNESS: Yes oriented to person, Yes oriented to place and Yes oriented to time HENMT: COMMON NORMALS: normocephalic HEAD & SCALP: normocephalic Neck/C-Spine: COMMON NORMALS: full ROM, supple, no JVD and No carotid bruits GENERAL: Yes trachea midline CERVICAL SPINE: Yes cervical ROM normal Chest: COMMONS NORMALS: normal inspection of the chest and normal palpation of entire chest wall Resp: COMMON NORMALS: normal respiratory effort, No use of accessory muscles, clear to auscultation bilaterally and percussion normal EFFORT & INSPECTION: Yes able to speak in complete sentences and Yes symmetric chest movement A USCULTATION: clear to auscultation bilaterally PERCUSSION: percussion normal Cardio: COMMON NORMALS: no JVD, regular rate, regular rhythm, S1 normal heart sound present, S2 normal heart sound present, No gallops present (Cardio), No murmurs present (Cardio) and No rub (Cardio) JUGULAR VENOUS DISTENTION: no JVD RATE: regular rate RHYTHM: regular rhythm HEART SOUNDS: S1 normal heart sound present and S2 normal heart sound present Extremity: NARRATIVE EXTREMITY EXAM: Gangrenous changes to the left forefoot with ischemic changes to overlying skin up to just below the left tibial tuberosity area. Ischemic skin changes have worsened in the past week and I feel as such, related to her inability to determine his discrete vascular status, above-knee amputation would be warranted. 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 He has failed local management through wound care services, but related to his renal insufficiency, cannot undergo contrast studies for concerns of acute kidney injury. I have been discussing this difficult situation with him in wound care clinic over the past few visits and he presents now for planned amputation. Related to the ongoing skin changes which now extends up to the tibial tuberosity, I feel the best course would be left above-knee amputation with the understanding of increased morbidity as compared to rehabilitation with a below- knee amputation. However, related to his ongoing ischemic changes and clinically severe vascular status I feel this is the best chance we have for appropriate healing with a least prospect for a protracted course and ongoing renal compromise. I will seek assistance of my hospitalist colleagues for postoperative overview in relation to his medical conditions. Details of risk procedure were frankly discussed. He understands increased risk related to his advanced age, diabetes mellitus, severe ischemic vascular disease, and tobacco use. He understands the potential for failure of the amputation or progression of his kidney dysfunction to the point requiring hemodialysis. Tentative plans for postoperative care after his hospitalization will be for inpatient shelter care in [place], [place]. Attestations 2 Medical Necessity Statement*: Critical ischemia left lower extremity with gangrenous changes Coding Level of Care Code Acute Code for Chg Fwd Diagnoses Critical limb ischemia of left lower extremity with gangrene I70.262
[2023-11-20] MEDS: midazolam 1 mg/mL INJ 2 mL 2 MG IVP (10:20)
[2023-11-20 10:23] LABS: Alanine Aminotransferase 11 U/L (0-41); Albumin Level 3.6 g/dL (3.5-5.2); Alkaline Phosphatase 133 U/L (40-130); Aspartate Amino Transferase 17 U/L (0-40); Blood Urea Nitrogen 68 mg/dL (8-23); Calcium 10.8 mg/dL (8.5-10.5); Carbon Dioxide 19 mmol/L (22-29); Chloride 105 mmol/L (98-107); Globulin 4.9 g/dL (1.3-4.6); Glucose 147 mg/dL (65-115); Osmolality Calculated 316 mOsm/kg (285-295); Sodium 142 mmol/L (136-145); Total Bilirubin 0.5 mg/dL (0.15-1.2); Total Protein 8.5 g/dL (6.6-8.7)
[2023-11-20 10:25] LABS: Anion Gap 22.2 (5-19); Potassium 4.2 mmol/L (3.5-5.1)
--- NOTE | 2023-11-20 10:30 | ANES.PROC ---
Anesthesia Procedures Procedure/Date: 11/20/23 Nerve Block ^: Nerve Block 1: Main Anesthesia: general anesthesia Time Out Performed: Yes Consent: requested by attending/covering physician, from patient, from other, risks and benefits reviewed and patient agrees to proceed Nerve block location: adductor canal (L) Anesthesia monitors applied: pulse oximetry, EKG and BP cuff Nerve block position: supine Anesthetic Used: ropivicaine 0.5% (20 ml) and with decadron (3 mg) Ultrasound used to: recognize landmarks and visualize and ID femerol nerve Nerve Stimulator Used?: No Interscalene/Femoral BLK: 4 stimuplex 21 g needle used for position and inplane approach, visualize local anesthetic spread and no vascular puncture identified Injection: neg aspiration of heme Patient Tolerated Procedure: well and no complications Complications: none Nerve Block 2: Main Anesthesia: general anesthesia Time Out Performed: Yes Consent: requested by attending/covering physician, from patient, from other, risks and benefits reviewed and patient agrees to proceed Nerve block location: popliteal (L) Anesthesia monitors applied: pulse oximetry, EKG and BP cuff Nerve block position: supine Anesthetic Used: ropivicaine 0.5% (10 ml) and with decadron (1 mg) Ultrasound used to: recognize landmarks and visualize and ID femerol nerve Nerve Stimulator Used?: No Interscalene/Femoral BLK: 4 stimuplex 21 g needle used for position and inplane approach, visualize local anesthetic spread and no vascular puncture identified Injection: neg aspiration of heme Patient Tolerated Procedure: well and no complications Complications: none
[2023-11-20] MEDS: sodium chloride 0.9% 1,000 ML 30 ML IV (10:36)
[2023-11-20] MEDS: ceFAZolin 2,000 MG in sodium chloride 0.9% (plus) 50 ML 100 MG IV (10:49)
[2023-11-20] MEDS: vancomycin 1,000 MG SDV 1000 MG IRRIGATION (11:58)
--- NOTE | 2023-11-20 13:50 | PM.OP ---
Operative Report Date of procedure: November 20, 2023 Pre-op diagnosis: Gangrene left foot with severe PAD and renal insufficiency Post-op diagnosis: same Procedure done: Left above-knee amputation Specimens removed/disposition: Left leg mid thigh to pathology Surgeon: Durga Thomas MD Anesthesia: General Complications: None Findings: There were marked skin changes of the left lower extremity up to the tibial tuberosity with edema above this level and slightly above the knee as well. At the level of transection, there was soft tissue edema though musculature appeared viable. Brief History: Mr. Shah is a diabetic gentleman with severe renal insufficiency with creatinine of approximately 4 who we have been caring for at [facility] wound care services since September with severe lesion of the left great toe with subsequent exposed bone. Clinical impression and hand-held Doppler is consistent with severe peripheral arterial disease, no related with his marked renal insufficiency, was contraindicated for contrast studies to assess the severity and level of his obstructive arterial disease. Wound failed to respond to wound care management and recommendation was made for amputation given the fact that he now had dixie gangrenous changes to the left forefoot. Related to his ongoing skin discoloration and changes in the leg, it was felt that it would be hazardous to attempt below-knee amputation. Details the risk of the procedure were frankly Discussed. On the day of the procedure, his brother was also present who also participated in our conversation concerning our recommendation. He and his brother agreed. Procedure: Mr. Shah was taken to the operating room and placed on the OR table in the supine position. He underwent general endotracheal anesthesia. The entire left lower extremity was sterilely prepped and draped. Appropriate timeout was completed and confirmed by all team members present. Left thigh was marked for incision line. #10 scalpel blade was utilized to circumferentially incise the skin in a fish[place] pattern. Anterior musculature was sharply divided utilizing scalpel and minimal use of cautery. Periosteal elevator was used for dissecting the periosteum off of the femur. Oscillating saw was utilized to divide the femur. Amputation knife was then used posteriorly to complete amputation of the left lower extremity. Meticulous inspection was carried out and hemostasis was controlled with minimal use of cautery, surgical clips, and suture ligature as required. The superficial femoral artery was controlled, retracted proximally, ligated and divided. The sciatic nerve was dissected proximally, ligated, and divided. The wound was irrigated with large amounts of antibiotic solution. Hemostasis was confirmed. A large Hemovac drain was placed beneath the fascia. The fascia was reapproximated with interrupted 0 and 2-0 Vicryl suture. Skin was reapproximated in an interrupted mattress fashion with monofilament suture. Sterile dressings were applied followed by a bulky dressing. Mr. Shah tolerated the procedure well and was taken to PACU. I did family service counselor with his brother by phone at completion of procedure. I conferred with Dr. Govea from our hospitalist service whose team will assist with postoperative management after the procedure.
[2023-11-20] MEDS: morphine 4 mg/mL SDV 1 mL 2 MG IVP (16:16)
[2023-11-20] MEDS: oxyCODONE-APAP 5-325 mg Tablet 1 TAB PO (16:16)
[2023-11-20] MEDS: aspirin 81 mg EC Tablet PO (16:16)
[2023-11-20] MEDS: sodium chloride 0.45% 1,000 ML 75 ML IV (16:17)
[2023-11-20 17:11] LABS: Glucose Point of Care 207 mg/dL (70-110)
--- NOTE | 2023-11-20 17:27 | ANE.PACU2 ---
Inpatient post-anesthesia follow up: Airway intact: Yes Vital signs: Temperature 98.4 F Pulse Rate 84 Respiratory Rate 16 Blood Pressure 150/71 Pulse Oximetry 96 Oxygen Delivery Me thod Room Air Oxygen Flow Rate Fraction of Inspir ed Oxygen Hydration adequate: Yes Nausea and vomiting: No Pain level: 1 Mental status: Baseline
[2023-11-20] MEDS: levoFLOXacin 250 mg Tablet PO (17:34)
--- NOTE | 2023-11-20 17:54 | P.CONIM_ITS ---
Providers/Reason For Consult 2 Consulting Physician/Specialty*: Frase/Hospitalist Reason for Consult*: CKD, diabetes, s/p AKA Requesting Physician: Dr Thomas Attending Physician: Durga Thomas MD Primary Care Provider: Juan Thomas DO History of Present Illness History of Present Illness Oriana Shah is a 78 year old male who presented to [facility] on the day of admission for planned lower extremity amputation due to gangrenous changes in his left foot along with osteomyelitis. He has a known history of diabetes and severe peripheral vascular disease along with chronic kidney disease. He has been followed at wound care clinic and despite efforts has had progressive worsening of left lower extremity wounds. Plan was for likely AKA of the left lower extremity and this is what was performed today by Dr. Thomas. Patient tolerated the procedure well and is admitted to Dr. Thomas service postoperatively. Hospitalist have been consulted due to comorbid medical conditions as outlined below. Baseline creatinine is 4. Patient denies any recent issues with chest pain or difficulty breathing. Has prostatic hypertrophy but has been urinating okay. Bowels have been regular. Denies any reports of bleeding. Spirits are good postoperatively. Not nauseated. Review of Systems 2 General: Reports: Other (ROS as per HPI or as noted here) Medications/Allergies Home Medications Medication Instructions Recorded Confirmed Last Taken Type acarbose 25 mg tablet 25 mg PO TID 11/12/19 11/17/23 11/17/23 History alogliptin 12.5 mg tablet 12.5 mg PO QDAY 11/12/19 11/17/23 11/17/23 History amlodipine benzoate 1 100 ml PO DAILY 11/12/19 11/20/23 11/20/23 History aspirin 81 mg tablet,delayed 81 mg PO QDAY 11/12/19 11/17/23 11/16/23 History release (Adult Aspirin Regimen) atorvastatin 20 mg tablet 20 mg PO QDAY 11/12/19 11/17/23 Unknown History cholecalciferol (vitamin D3) 50 1,000 unit PO QDAY 11/12/19 11/17/23 Unknown History mcg (2,000 unit) tablet (Vitamin D3) clopidogrel 75 mg tablet 75 mg PO QDAY 11/12/19 11/17/23 11/16/23 History hydralazine 25 mg tablet 25 mg PO TID 11/12/19 11/17/23 Unknown History tamsulosin 0.4 mg capsule 0.4 mg PO QDAY 11/12/19 11/17/23 Unknown History clonidine HCl 0.1 mg tablet 0.05 mg PO BID 08/19/21 11/17/23 Unknown History urea 40 % topical cream 1 applic topical TID #198 grams 06/23/22 11/17/23 Unknown Rx Compression socks bilaterally #1 ea 07/26/22 11/20/23 Unknown Rx ammonium lactate 12 % topical cream 1 applic topical BID callus of 12/29/22 11/17/23 Unknown Rx foot 3 months #385 grams diabetic shoes with 3 inserts #1 ea 12/29/22 11/20/23 Unknown Rx mupirocin 2 % topical ointment 1 applic topical BID 2 weeks #22 06/07/23 11/17/23 Unknown Rx grams levofloxacin 250 mg tablet 250 mg PO Q48H #12 tabs 10/23/23 11/17/23 Unknown Rx hydrocodone 5 mg-acetaminophen 325 1 tab PO Q6H PRN pain #14 tabs 11/11/23 11/20/23 Unknown Rx mg tablet ibuprofen 125 mg-acetaminophen 250 1 tab PO Q8H PRN Pain 11/20/23 11/20/23 11/20/23 History mg tablet (Advil Dual Action) Allergies Allergy/AdvReac Type Severity Reaction Status Date / Time Sulfa (Sulfonamide Allergy Mild ALGY-Hives Verified 08/03/23 14:46 Antibiotics) Current Medications Generic Name Dose Route Start Last Admin Trade Name Freq PRN Reason Stop Dose Admin Aspirin 81 mg 11/20/23 15:56 11/20/23 16:16 Aspirin 81 Mg Ec Tablet PO 81 mg DAILY ROSALIO Administration Sodium Chloride 1,000 mls @ 75 mls/hr 11/20/23 15:56 11/20/23 16:17 Sodium Chloride 0.45% IV 75 mls/hr .[id number] ROSALIO Administration Levofloxacin 250 mg 11/20/23 17:00 11/20/23 17:34 Levofloxacin 250 Mg Tablet PO 250 mg Q48H ROSALIO Administration Protocol Morphine Sulfate 2 mg 11/20/23 15:56 11/20/23 16:16 Morphine 4 Mg/Ml Sdv 1 Ml IVP 2 mg Q1H PRN Administration SEVERE PAIN Oxycodone/Acetaminophen 1 tab 11/20/23 15:56 11/20/23 16:16 Oxycodone-Apap 5-325 Mg Tablet PO 1 tab Q4H PRN Administration MODERATE PAIN PFSH Acute 2 PFSH: Medical History (Updated 11/20/23 @ 22:02 by Mary Govea MD) Prostatic hypertrophy History of stroke Colon cancer Non-melanoma skin cancer Chronic kidney disease GERD (gastroesophageal reflux disease) Diabetic neuropathy Peripheral vascular disease Gout CHF (congestive heart failure) Severe peripheral arterial disease HTN (hypertension) Hyperlipidemia Type 2 diabetes mellitus with foot ulcer Surgical History (Updated 11/20/23 @ 18:03 by Mary Govea MD) History of partial colectomy History of hernia surgery History of kidney surgery Family History Other Diabetes Social History Smoking and tobacco/nicotine status: former use of tobacco/nicotine Alcohol intake: never Vitals/I&O/Wt Last Vital Signs Temp 97.8 F 11/20/23 17:10 Pulse 87 11/20/23 17:10 Resp 19 H 11/20/23 17:10 BP 120/69 11/20/23 17:10 Pulse Ox 92 11/20/23 17:10 O2 Del Method Room Air 11/20/23 17:10 11/20/23 11/20/23 11/20/23 06:59 14:59 22:59 Intake Total 50 / 50 Output Total 410 / 410 Balance -360 / -360 Weight last 48 hrs Weight 75.75 kg Weight 75.75 kg Physical Exam 2 Narrative: Patient is awake and alert, able to provide history. Normocephalic. Extraocular movements are intact. Neck is supple. Lungs are clear to auscultation bilaterally. Cardiovascular exam reveals a regular rate and rhythm. Abdomen is soft, nontender. Extremities with chronic skin changes notable to the right lower extremity. No pitting edema. Left lower extremity status post AKA with Navarro wrap intact, drains noted. Graves catheter is in place. Speech is clear. Urinary Catheter Management: Graves: Cath Placed During This Visit: yes Urinary Catheter Date of Insertion: 11/20/23 Urinary Catheter Time of Insertion: 11:15 Data 11/20/23 09:53 11/20/23 09:53 Other Labs: Laboratory Results WBC 12.31 10^3/uL (3.29-11.43) H 11/20/23 09:53 RBC 3.77 10^6/uL (3.85-5.65) L 11/20/23 09:53 Hgb 12.30 g/dL (11.27-16.99) 11/20/23 09:53 Hct 38.0 % (37-53) 11/20/23 09:53 MCV 100.8 fl (82-101) 11/20/23 09:53 MCH 32.6 pg (27-33) 11/20/23 09:53 MCHC 32.4 g/dL (30-55) 11/20/23 09:53 RDW 14.1 % (12.1-15.1) 11/20/23 09:53 Plt Count 202 10^3/cmm (157-399) 11/20/23 09:53 MPV 10.5 fL (7.4-10.4) H 11/20/23 09:53 Neut % (Auto) 88.5 % 11/20/23 09:53 Lymph % (Auto) 4.2 % 11/20/23 09:53 Jasper % (Auto) 4.4 % 11/20/23 09:53 Eos % (Auto) 0.2 % 11/20/23 09:53 Baso % (Auto) 0.5 % 11/20/23 09:53 Neut # (Auto) 10.89 10^3/uL (1.8-7.7) H 11/20/23 09:53 Lymph # (Auto) 0.5 10^3/uL (0.8-4.8) L 11/20/23 09:53 Jasper # (Auto) 0.5 10^3/uL (0.2-0.9) 11/20/23 09:53 Eos # (Auto) 0.0 10^3/uL (0.0-0.8) 11/20/23 09:53 Baso # (Auto) 0.1 10^3/uL (0.0-0.1) 11/20/23 09:53 Nucleated RBC % (auto) 0 % 11/20/23 09:53 Nucleated RBCs # 0.0 /100WBC 02/05/24 09:53 Sodium 142 mmol/L (136-145) 11/20/23 09:53 Potassium 4.2 mmol/L (3.5-5.1) 11/20/23 09:53 Chloride 105 mmol/L (98-107) 11/20/23 09:53 Carbon Dioxide 19 mmol/L (22-29) L 11/20/23 09:53 Anion Gap 22.2 (5-19) H 11/20/23 09:53 BUN 68 mg/dL (8-23) H 11/20/23 09:53 Creatinine 4.1 mg/dL (0.7-1.2) H 11/20/23 09:53 GFR Calculation Not Reportable 11/20/23 09:53 Glucose 147 mg/dL (65-115) H 11/20/23 09:53 POC Glucose 238 mg/dL (70-110) H 11/20/23 20:47 Calculated Osmolality 316 mOsm/kg (285-295) H 11/20/23 09:53 Calcium 10.8 mg/dL (8.5-10.5) H 11/20/23 09:53 Total Bilirubin 0.5 mg/dL (0.15-1.2) 11/20/23 09:53 AST 17 U/L (0-40) 11/20/23 09:53 ALT 11 U/L (0-41) 11/20/23 09:53 Alkaline Phosphatase 133 U/L (40-130) H 11/20/23 09:53 Total Protein 8.5 g/dL (6.6-8.7) 11/20/23 09:53 Albumin 3.6 g/dL (3.5-5.2) 11/20/23 09:53 Globulin 4.9 g/dL (1.3-4.6) H 11/20/23 09:53 Blood Type A Positive 11/20/23 09:53 Rho(D) Type Rh positive 11/20/23 09:53 Antibody Screen Negative 11/20/23 09:53 Crossmatch See Detail 11/20/23 09:53 Other data: Laboratory Tests 09/18/23 15:10 Hemoglobin A1c 7.3 H A&P Assessment and plan (1) Critical limb ischemia of left lower extremity with gangrene: In a patient with known severe peripheral arterial disease related to diabetes and kidney disease who has been followed at wound care clinic for some time for left lower extremity wounds that have been found to have osteomyelitis and gangrenous skin changes. (2) Status post above-knee amputation of left lower extremity: Postop day 0 (3) Chronic kidney disease: Stage IIIb versus stage IV at baseline with creatinine around 4 being normal for him. (4) Type 2 diabetes mellitus with foot ulcer: Type 2 diabetes mellitus, [id number]-yeoyqjazh, with chronic kidney disease stage IIIb/IV, peripheral arterial disease and peripheral neuropathy. Chronically on a carbose and alogliptin. (5) HTN (hypertension): Chronically on amlodipine, clonidine, hydralazine (6) Hyperlipidemia: Chronically on atorvastatin (7) Prostatic hypertrophy: Chronically on tamsulosin Plan Postoperative and wound management as per Dr. Thomas Discussed with patient about phantom leg pain and gave him an opportunity to ask questions Monitor urine output and renal function postoperatively Avoid nephrotoxic medications and renally dose when appropriate Sliding scale insulin for diabetes, currently holding oral medications Will continue a lower dose of amlodipine and monitor blood pressures As needed clonidine, takes a half of a 0.1 mg tablet at home Home hydralazine remains held, can resume as needed when blood pressure recovers postoperatively On home statin therapy Continue tamsulosin On home aspirin, home Plavix currently held Foot pump in place to right foot, other DVT prophylaxis when appropriate postoperatively PT and OT evaluations when appropriate postoperatively Pain control has been ordered Has scheduled and as needed laxatives/stool softeners Graves in place and will need removed in next 24-48 hours, though with AKA and BPH will need to monitor ability to urinate after graves removal Supportive care otherwise Thank you very much for consultation Will follow along with you while patient is here Diagnoses Critical limb ischemia of left lower extremity with gangrene I70.262 Status post above-knee amputation of left lower extremity Z89.612 Chronic kidney disease N18.9 Type 2 diabetes mellitus with foot ulcer E11.621; L97.509 HTN (hypertension) I10 Hyperlipidemia E78.5 Prostatic hypertrophy N40.0
[2023-11-20] MEDS: insulin lispro 100 unit/1 mL SUBCUT ×2 (17:57→20:56)
[2023-11-20 20:52] LABS: Glucose Point of Care 238 mg/dL (70-110)
[2023-11-21] VITALS (11 sets, daily range): BP systolic 123–156; BP diastolic 72–77; PULSE 91–104; RESP 16–20; TEMP 36.6–37.3; O2SAT 93–99; BMI 23.8
[2023-11-21] MEDS: oxyCODONE-APAP 5-325 mg Tablet 1 TAB PO ×4 (01:38→21:56)
[2023-11-21] MEDS: sodium chloride 0.45% 1,000 ML 75 ML IV (03:29)
[2023-11-21 06:14] LABS: Basophils % 0.1 %; Hematocrit 26.5 % (37-53); Lymphocytes # 0.4 10^3/uL (0.8-4.8); Lymphocytes % 3.1 %; Mean Corpuscular HGB Conc 31.7 g/dL (30-55); Mean Corpuscular Hemoglobin 32.6 pg (27-33); Mean Corpuscular Volume 102.7 fl (82-101); Mean Platelet Volume 10.6 fL (7.4-10.4); Monocytes % 7.6 %; Neutrophils # 11.78 10^3/uL (1.8-7.7); Neutrophils % 87.1 %; Nucleated Red Blood Cells % 0.1 %; Platelet Count 188 10^3/cmm (157-399); Red Blood Count 2.58 10^6/uL (3.85-5.65); Red Cell Distribution Width 14.1 % (12.1-15.1); White Blood Count 13.54 10^3/uL (3.29-11.43)
--- NOTE | 2023-11-21 06:15 | P.PN_ITS ---
Subjective 2 Subjective: Postop day 1 status post left above-knee amputation. Mr. Shah was awake on rounds. He appears to be very comfortable. He had no complaints. Nursing service has not reported any particular concerns. They saw me making rounds but did not engage. Very small amount of drainage from the Hemovac which is in place. Surgical dressing remains in place. Vital signs appear to be stable. Currently on 75 cc of 0.45% saline. Unfortunately, I am still waiting lab results from this morning which include CBC and BMP. Dr. Govea has placed her consultation and I greatly appreciate her expertise. Vitals/I&O/Wt Last Vital Signs Temp 98.2 F 11/21/23 04:00 Pulse 95 11/21/23 04:00 Resp 20 H 11/21/23 04:00 BP 138/76 11/21/23 04:00 Pulse Ox 95 11/21/23 04:00 O2 Del Method Room Air 11/20/23 18:10 11/20/23 11/20/23 11/21/23 14:59 22:59 06:59 Intake Total 50 / 50 480 / 530 840 / 1370 Output Total 410 / 410 400 / 810 950 / 1760 Balance -360 / -360 80 / -280 -110 / -390 Weight last 48 hrs Weight 157 lb 1 oz Weight 167 lb Weight 167 lb Physical Exam 2 Extremity: NARRATIVE EXTREMITY EXAM: Surgical dressing in place over left AKA. Hemovac drain remains in position with very low output recorded at 10 cc. Mr. Shah appears to be very comfortable with minimal discomfort. Urinary Catheter Management: Spann: Cath Placed During This Visit: yes Reason for Continuing Indwelling Catheter: Required Immobilization for Trauma or Surgery or Anesthesia Urinary Catheter Date of Insertion: 11/20/23 Urinary Catheter Time of Insertion: 11:15 Data 11/20/23 09:53 11/20/23 09:53 A&P Assessment and plan (1) Status post above-knee amputation of left lower extremity: Postop day #1 status post left above-knee amputation due to severe peripheral arterial disease with gangrene Plan: Will await arrival of the laboratory results and then make appropriate adjustments. After taking adequate p.o. will consider discontinuation of IV. With calculated creatinine clearance of approximately 15 cc/min, we will reinstitute cefazolin at 500 milligrams every 12 hours. CBC/BMP in AM. I will plan to leave Hemovac drain into the remainder of the day and reassess this evening for removal or in and executive administrative assistant. Discharge planning is currently underway for planned discharge to [facility]. Attestations 2 Medical Necessity Statement*: Postop day #1 status post left above-knee amputation due to severe peripheral arterial disease with gangrene Coding Level of Care Code Acute Code for Chg Fwd Diagnoses Status post above-knee amputation of left lower extremity Z89.612
[2023-11-21 06:22] LABS: Glucose Point of Care 143 mg/dL (70-110)
[2023-11-21 06:39] LABS: Anion Gap 18.5 (5-19); Blood Urea Nitrogen 68 mg/dL (8-23); Calcium 9.2 mg/dL (8.5-10.5); Carbon Dioxide 19 mmol/L (22-29); Chloride 106 mmol/L (98-107); Glucose 133 mg/dL (65-115); Osmolality Calculated 310 mOsm/kg (285-295); Potassium 4.5 mmol/L (3.5-5.1); Sodium 139 mmol/L (136-145)
[2023-11-21] MEDS: pantoprazole DR 40 mg Tablet PO (08:38)
[2023-11-21] MEDS: aspirin 81 mg EC Tablet PO (08:38)
[2023-11-21] MEDS: cholecalciferol (vitamin D3) 1,000 unit Tablet 1000 UNIT PO (08:38)
[2023-11-21] MEDS: atorvastatin 40 mg Tablet 20 MG PO (08:38)
[2023-11-21] MEDS: tamsulosin 0.4 mg Capsule PO (08:39)
[2023-11-21] MEDS: amlodipine 5 mg Tablet PO (08:39)
[2023-11-21] MEDS: insulin lispro 100 unit/1 mL SUBCUT ×4 (08:39→21:57)
--- NOTE | 2023-11-21 09:42 | PC.CHAP ---
Pastoral Care Encounter/Spiritual Assessment Type of Contact [] Declined computer lab assistant visit [] Patient/Family/Request visit [] Outpatient visit [] Follow-up visit [] Physician referral [] Code/Alert [x] Routine visit [] Staff referral [] Actively dying [] Patient sleeping [] Family support [] [] Out of room [] Palliative care [] [] Receiving care in room [] Pre-surgical visit [] Trauma [] Long length of stay [] ICU visit [] Other: Relational/Emotional Strength [x] Patient feels connected with others/family/visitors/staff [] Distress [] Loneliness/isolation [] Abandonment Spirituality of Patient [x] Person of Julia [] Attends [employer] of their Julia [x] Believes in Prayer [] Reads Bible or Confucianist materials [] There are Spiritual issues to be addressed Driver Material Handler Interventions [x] Prayer [] Active listening [x Non-anxious presence [x] Spiritual/emotional support [] Crisis/trauma care [] Spiritual counseling [] Bereavement support [] Provided bereavement packet [] Provided Bible/devotional materials [] Provided toy/stuffed animal, coloring book to patient or family member [] Provided Communion [] Anointing/[place] [] Salvation [x] Completed spiritual assessment [] Other: Impact on Illness or Injury [] Angry [] Fearful [] Anxious [] Often cries [] Exhaustion [] Unable to work [] Unable to attend rastafari [] Unable to walk/stand [] Unable to read [] Unable to drive [] Unable to eat/drink [] Unable to sleep [] Unable to be with family [] Patient intubated [] Other: Summary Time spent with patient 5 min
[2023-11-21 10:42] LABS: Add Urine Microscopic? YES; Bilirubin Urine Neg (Negative); Blood Urine 3+ (Negative); Glucose Urine UA 4+ (Normal); Ketones Urine Negative (Negative); Leukocyte Esterase Urine Negative (Negative); Nitrate Urine Negative (Negative); Protein Urine 1+ (Negative); Specific Gravity, Urine 1.015 (1.005-1.030); Urine Appearance SL Hazy (CLEAR); Urine Color Yellow (Yellow); Urobilinogen Urine Norm (Negative); pH Urine 5 (5-7)
[2023-11-21 10:52] LABS: Add Urine Culture? No; Amorphous Sediment Urine TRACE /hpf; Bacteria Urine TRACE /hpf; Mucus Urine 1+ /hpf; Squamous Epithelial Cell Urine 0-4 /hpf (0-5); Transitional Epi Cells Urine 0-4 /hpf
[2023-11-21 11:05] LABS: Procalcitonin 0.16 ng/mL (0-0.5); Thyroid Stimulating Hormone 0.66 uIU/mL (0.27-4.20); Vitamin B12 469 pg/mL (232-1245)
[2023-11-21] MEDS: morphine 4 mg/mL SDV 1 mL 2 MG IVP (11:13)
[2023-11-21 11:23] LABS: Iron 32 ug/dL (59-158); Total Iron Binding Capacity 177 mcg/dl; Unsaturated Iron Binding 145 ug/dL (112-347)
[2023-11-21 11:46] LABS: Glucose Point of Care 213 mg/dL (70-110)
--- NOTE | 2023-11-21 14:48 | P.PN_ITS ---
Subjective 2 Subjective: Hospital course, labs appreciated. Today morning seen comfortably sitting in bed with family at bedside. States still having some pain. Denies any nausea, vomiting, headache. Has remained hemodynamically stable. Vitals/I&O/Wt Last Vital Signs Temp 99.1 F 11/21/23 12:00 Pulse 104 H 11/21/23 12:00 Resp 18 11/21/23 12:00 BP 143/74 11/21/23 12:00 Pulse Ox 93 11/21/23 12:00 O2 Del Method Room Air 11/21/23 12:00 11/20/23 11/21/23 11/21/23 22:59 06:59 14:59 Intake Total 480 / 530 840 / 1370 290 / 290 Output Total 400 / 810 950 / 1760 Balance 80 / -280 -110 / -390 290 / 290 Weight last 48 hrs Weight 71.242 kg Weight 75.75 kg Weight 75.75 kg Physical Exam 2 Narrative: Patient is awake and alert, able to provide history. Normocephalic. Extraocular movements are intact. Neck is supple. Lungs are clear to auscultation bilaterally. Cardiovascular exam reveals a regular rate and rhythm. Abdomen is soft, nontender. Extremities with chronic skin changes notable to the right lower extremity. No pitting edema. Left lower extremity status post AKA with Navarro wrap intact, drains noted. Spann catheter is in place. Speech is clear. Urinary Catheter Management: Spann: Cath Placed During This Visit: yes Reason for Continuing Indwelling Catheter: Required Immobilization for Trauma or Surgery or Anesthesia Urinary Catheter Date of Insertion: 11/20/23 Urinary Catheter Time of Insertion: 11:15 Data 11/21/23 05:30 11/21/23 05:30 Micro: Microbiology 11/21/23 11:25 Blood Culture - Preliminary Blood SPECIMEN COLLECTED 11/21/23 11:18 Blood Culture - Preliminary Blood SPECIMEN COLLECTED A&P Assessment and plan (1) Critical limb ischemia of left lower extremity with gangrene: In a patient with known severe peripheral arterial disease related to diabetes and kidney disease who has been followed at wound care clinic for some time for left lower extremity wounds that have been found to have osteomyelitis and gangrenous skin changes. (2) Status post above-knee amputation of left lower extremity: Postop day 1 (3) Chronic kidney disease: Stage IIIb versus stage IV at baseline with creatinine around 4 being normal for him. (4) Type 2 diabetes mellitus with foot ulcer: Type 2 diabetes mellitus, [id number]-hmaopiqyx, with chronic kidney disease stage IIIb/IV, peripheral arterial disease and peripheral neuropathy. Chronically on a carbose and alogliptin. (5) HTN (hypertension): Chronically on amlodipine, clonidine, hydralazine (6) Hyperlipidemia: Chronically on atorvastatin (7) Prostatic hypertrophy: Chronically on tamsulosin (8) Postoperative anemia: Plan Plan for the day: History of stenotrophomonas from wounds. Susceptible to Levaquin. Continue with Levaquin 250 mg every 48 hourly as per renal dosing and cefazolin 500 mg IV twice daily for now. Check blood cultures. Hemoglobin noted today most likely postoperative status along with mild elevation as patient is on IV fluids. Patient tolerating oral diet well. Can stop IV fluids. Start on IV iron supplementation. Check vitamin B12 folate levels and iron panel. Pain medication, physical therapy as per primary team. Check urinalysis. Insulin sliding scale before meals and at bedtime. Remove Spann. Goal blood pressure less than 140/90 mmHg. For now continue with amlodipine 5 mg oral daily, clonidine 0.05 every 4 hours as needed. Holding off on hydralazine 25 mg 3 times daily for now. If needed will add metoprolol for mild tachycardia. Discharge plan: Plan to discharge to SNF for further rehabilitation. Case management working on same. Thank you for involving us in care of Mr. Shah. Will continue to follow. Attestations 2 Medical Necessity Statement*: Requires further hospitalization for postoperative care in a patient who underwent BKA for critical limb ischemia, CKD, postoperative anemia Diagnoses Critical limb ischemia of left lower extremity with gangrene I70.262 Status post above-knee amputation of left lower extremity Z89.612 Chronic kidney disease N18.9 Type 2 diabetes mellitus with foot ulcer E11.621; L97.509 HTN (hypertension) I10 Hyperlipidemia E78.5 Prostatic hypertrophy N40.0 Postoperative anemia D64.9
[2023-11-21 16:54] LABS: Glucose Point of Care 154 mg/dL (70-110)
[2023-11-21 21:20] LABS: Glucose Point of Care 177 mg/dL (70-110)
[2023-11-22] VITALS (9 sets, daily range): BP systolic 120–145; BP diastolic 60–78; PULSE 99–106; RESP 17–22; TEMP 36.6–37; O2SAT 92–96
--- NOTE | 2023-11-22 01:36 | P.PN_ITS ---
Subjective 2 Subjective: Postop day #2 status post left above-knee amputation for severe ischemia and gangrene of left lower extremity. Mr. Shah continues to do well with postop discomfort under good control. He has low CLAUDE drain output. Tolerating diet well. Vitals/I&O/Wt Last Vital Signs Temp 98.2 F 11/22/23 00:00 Pulse 105 H 11/22/23 00:00 Resp 18 11/22/23 00:00 BP 120/76 11/22/23 00:00 Pulse Ox 96 11/22/23 00:00 O2 Del Method Room Air 11/21/23 15:45 11/21/23 11/21/23 11/22/23 14:59 22:59 06:59 Intake Total 1290 / 1290 530 / 1820 Output Total 1000 / 1000 Balance 1290 / 1290 -470 / 820 Weight last 48 hrs Weight 157 lb 1 oz Weight 167 lb Weight 167 lb Physical Exam 2 Extremity: NARRATIVE EXTREMITY EXAM: Surgical dressing removed from left above-knee amputation. Hemovac drain output approximate 60 cc since surgery. Incision line is clean, dry, and intact. No evidence for substantial fluid collection. No genia-incisional ecchymosis. No erythema. No drainage from incision line. Hemovac drain was discontinued. Urinary Catheter Management: Spann: Cath Placed During This Visit: yes Reason for Continuing Indwelling Catheter: Required Immobilization for Trauma or Surgery or Anesthesia Urinary Catheter Date of Insertion: 11/20/23 Urinary Catheter Time of Insertion: 11:15 Data 11/21/23 05:30 11/21/23 05:30 Micro: Microbiology 11/21/23 11:25 Blood Culture - Preliminary Blood SPECIMEN COLLECTED 11/21/23 11:18 Blood Culture - Preliminary Blood SPECIMEN COLLECTED A&P Assessment and plan (1) Status post above-knee amputation of left lower extremity: Postop day #2 status post left above-knee amputation for gangrene with severe peripheral arterial disease and chronic renal insufficiency. Plan: Will continue postoperative care with tentative plans for discharge to [facility] in [place], [place] tomorrow. Greatly appreciate expertise and oversight of Dr. Velarde and our hospitalist colleagues. Attestations 2 Medical Necessity Statement*: Postop day #2 status post left above-knee amputation for gangrene of left foot and severe peripheral arterial disease with chronic renal insufficiency Coding Level of Care Code Acute Code for Chg Fwd Diagnoses Status post above-knee amputation of left lower extremity Z89.612
[2023-11-22] MEDS: morphine 4 mg/mL SDV 1 mL 2 MG IVP (01:37)
[2023-11-22 06:12] LABS: Basophils % 0.5 %; Hematocrit 25.1 % (37-53); Lymphocytes # 0.5 10^3/uL (0.8-4.8); Mean Corpuscular HGB Conc 31.5 g/dL (30-55); Mean Corpuscular Hemoglobin 32.1 pg (27-33); Mean Platelet Volume 10.6 fL (7.4-10.4); Monocytes % 11.9 %; Neutrophils # 6.66 10^3/uL (1.8-7.7); Neutrophils % 78.8 %; Nucleated Red Blood Cells % 0.2 %; Platelet Count 188 10^3/cmm (157-399); Red Blood Count 2.46 10^6/uL (3.85-5.65); Red Cell Distribution Width 14.1 % (12.1-15.1); White Blood Count 8.46 10^3/uL (3.29-11.43)
[2023-11-22 06:31] LABS: Glucose Point of Care 159 mg/dL (70-110)
[2023-11-22 06:31] LABS: Alanine Aminotransferase < 5 U/L (0-41); Albumin Level 2.8 g/dL (3.5-5.2); Alkaline Phosphatase 90 U/L (40-130); Anion Gap 13.2 (5-19); Aspartate Amino Transferase 16 U/L (0-40); Blood Urea Nitrogen 63 mg/dL (8-23); Calcium 9.2 mg/dL (8.5-10.5); Carbon Dioxide 21 mmol/L (22-29); Chloride 107 mmol/L (98-107); Globulin 3.7 g/dL (1.3-4.6); Glucose 159 mg/dL (65-115); Osmolality Calculated 305 mOsm/kg (285-295); Potassium 4.2 mmol/L (3.5-5.1); Sodium 137 mmol/L (136-145); Total Bilirubin 0.3 mg/dL (0.15-1.2); Total Protein 6.5 g/dL (6.6-8.7)
[2023-11-22 06:32] LABS: Chol HDL Ratio 2.97 mg/dL (1.0-5.00); Cholesterol 98 mg/dL (0-200); HDL Cholesterol 33 mg/dL (60-100); LDL Cholesterol Calculated 37 mg/dL (50-129); Magnesium 2.4 mg/dL (1.7-2.3); Triglycerides 139 mg/dL (0-150); VLDL Cholestrol Calculation 28 mg/dL (0-30)
[2023-11-22 06:46] LABS: Folate Level 10.5 ng/mL (4.5-32.2)
[2023-11-22] MEDS: atorvastatin 40 mg Tablet 20 MG PO (08:21)
[2023-11-22] MEDS: insulin lispro 100 unit/1 mL SUBCUT ×3 (08:21→20:37)
[2023-11-22] MEDS: cholecalciferol (vitamin D3) 1,000 unit Tablet 1000 UNIT PO (08:21)
[2023-11-22] MEDS: tamsulosin 0.4 mg Capsule PO (08:21)
[2023-11-22] MEDS: pantoprazole DR 40 mg Tablet PO (08:21)
[2023-11-22] MEDS: amlodipine 5 mg Tablet PO (08:21)
[2023-11-22] MEDS: aspirin 81 mg EC Tablet PO (08:21)
[2023-11-22] MEDS: oxyCODONE-APAP 5-325 mg Tablet 1 TAB PO ×2 (08:25→15:39)
--- NOTE | 2023-11-22 11:12 | PC.NURSE ---
pt asks that we add his daughter Kristy Elizabeth to his list of HIPAA approved contacts. Her phone number is [phone].
[2023-11-22 11:22] LABS: Glucose Point of Care 165 mg/dL (70-110)
--- NOTE | 2023-11-22 12:07 | PC.SOCIAL ---
Pg 2 IMM Explained to pt Pg 2 IMM. No questions voiced. Provided pt a copy. Initialed, dated, & timed a copy & placed in chart.
--- NOTE | 2023-11-22 13:50 | P.PN_ITS ---
Subjective 2 Subjective: No acute events overnight. Dressing changed earlier in the morning today. On examination resting comfortably in bed. Denies any nausea, ting, headache. States pain is well-controlled for now. Vitals/I&O/Wt Last Vital Signs Temp 97.8 F 11/22/23 12:00 Pulse 100 11/22/23 12:00 Resp 18 11/22/23 12:00 BP 138/78 11/22/23 12:00 Pulse Ox 93 11/22/23 12:00 O2 Del Method Room Air 11/21/23 15:45 11/21/23 11/22/23 11/22/23 22:59 06:59 14:59 Intake Total 530 / 1820 480 / 480 Output Total 1000 / 1000 1100 / 2100 50 / 50 Balance -470 / 820 -1100 / -280 430 / 430 Weight last 48 hrs Weight 72.484 kg Weight 71.242 kg Weight 75.75 kg Physical Exam 2 Narrative: Patient is awake and alert, without acute process. Normocephalic. Extraocular movements are intact. Neck is supple. Lungs are clear to auscultation bilaterally with occasional rhonchi. Cardiovascular exam reveals a regular rate and rhythm. Abdomen is soft, nontender. Extremities with chronic skin changes notable to the right lower extremity. No pitting edema. Left lower extremity status post AKA with Navarro wrap intact, drains noted. Spann catheter is in place. Speech is clear. Urinary Catheter Management: Spann: Cath Placed During This Visit: yes Reason for Continuing Indwelling Catheter: Other Urinary Catheter Date of Insertion: 11/20/23 Urinary Catheter Time of Insertion: 11:15 Data 11/22/23 05:20 11/22/23 05:20 Micro: Microbiology 11/21/23 11:25 Blood Culture - Preliminary Blood NEGATIVE TO DATE 11/21/23 11:18 Blood Culture - Preliminary Blood NEGATIVE TO DATE A&P Assessment and plan (1) Critical limb ischemia of left lower extremity with gangrene: In a patient with known severe peripheral arterial disease related to diabetes and kidney disease who has been followed at wound care clinic for some time for left lower extremity wounds that have been found to have osteomyelitis and gangrenous skin changes. (2) Status post above-knee amputation of left lower extremity: Postop day 1 (3) Chronic kidney disease: Stage IIIb versus stage IV at baseline with creatinine around 4 being normal for him. (4) Type 2 diabetes mellitus with foot ulcer: Type 2 diabetes mellitus, [id number], with chronic kidney disease stage IIIb/IV, peripheral arterial disease and peripheral neuropathy. Chronically on a carbose and alogliptin. (5) HTN (hypertension): Chronically on amlodipine, clonidine, hydralazine (6) Hyperlipidemia: Chronically on atorvastatin (7) Prostatic hypertrophy: Chronically on tamsulosin (8) Postoperative anemia: Plan Plan for the day: Hemoglobin slightly trending down. Will continue to monitor. Repeat hemoglobin in the evening. Transfuse if less than 7. Most likely still equilibrating postoperatively. No concerns for GI bleed. Continue Protonix 40 mg daily. Appreciate iron panel, vitamin B12 and folate levels. Start on oral iron supplementation. Appreciate urinalysis. No concerns for UTI. Leukocytosis have resolved. Blood cultures so far negative. History of stenotrophomonas from wounds. Susceptible to Levaquin. Continue with Levaquin 250 mg every 48 hourly as per renal dosing and cefazolin 500 mg IV twice daily for now. Goal blood pressure less than 140/90 mmHg. For now continue with amlodipine 5 mg oral daily, clonidine 0.05 every 4 hours as needed. Holding off on hydralazine 25 mg 3 times daily for now. If needed will add metoprolol for mild tachycardia. Discharge plan: Plan to discharge to SNF for further rehabilitation. Patient has been accepted to SNF and most likely can be discharged tomorrow. Thank you for involving us in care of Mr. Shah. Will continue to follow. Attestations 2 Medical Necessity Statement*: As per primary team for postoperative care per post AKA, monitoring hemoglobin while safe discharge planning is sought. Diagnoses Critical limb ischemia of left lower extremity with gangrene I70.262 Status post above-knee amputation of left lower extremity Z89.612 Chronic kidney disease N18.9 Type 2 diabetes mellitus with foot ulcer E11.621; L97.509 HTN (hypertension) I10 Hyperlipidemia E78.5 Prostatic hypertrophy N40.0 Postoperative anemia D64.9
[2023-11-22 17:07] LABS: Glucose Point of Care 147 mg/dL (70-110)
[2023-11-22] MEDS: levoFLOXacin 250 mg Tablet PO (17:20)
[2023-11-22] MEDS: iron polysaccharide complex 150 mg Capsule PO (17:20)
[2023-11-22 18:05] LABS: Hematocrit 23.9 % (37-53)
[2023-11-22 20:26] LABS: Glucose Point of Care 183 mg/dL (70-110)
[2023-11-23] VITALS (7 sets, daily range): BP systolic 132–149; BP diastolic 66–78; PULSE 72–103; RESP 17–20; TEMP 36.6–37; O2SAT 91–95
[2023-11-23] MEDS: oxyCODONE-APAP 5-325 mg Tablet 1 TAB PO ×2 (03:28→09:49)
[2023-11-23 05:38] LABS: Basophils # 0.1 10^3/uL (0.0-0.1); Basophils % 0.5 %; Eosinophils % 0.2 %; Hematocrit 24.8 % (37-53); Lymphocytes # 0.5 10^3/uL (0.8-4.8); Lymphocytes % 5.4 %; Mean Corpuscular Hemoglobin 31.4 pg (27-33); Mean Corpuscular Volume 101.2 fl (82-101); Mean Platelet Volume 10.5 fL (7.4-10.4); Monocytes # 1.1 10^3/uL (0.2-0.9); Monocytes % 10.5 %; Neutrophils # 8.01 10^3/uL (1.8-7.7); Neutrophils % 79.9 %; Nucleated Red Blood Cells % 0 %; Platelet Count 176 10^3/cmm (157-399); Red Blood Count 2.45 10^6/uL (3.85-5.65); White Blood Count 10.02 10^3/uL (3.29-11.43)
[2023-11-23 05:54] LABS: Magnesium 2.4 mg/dL (1.7-2.3)
[2023-11-23 05:55] LABS: Alanine Aminotransferase 7 U/L (0-41); Albumin Level 2.9 g/dL (3.5-5.2); Alkaline Phosphatase 94 U/L (40-130); Anion Gap 18.7 (5-19); Aspartate Amino Transferase 22 U/L (0-40); Blood Urea Nitrogen 58 mg/dL (8-23); Calcium 8.7 mg/dL (8.5-10.5); Carbon Dioxide 19 mmol/L (22-29); Chloride 108 mmol/L (98-107); Glucose 134 mg/dL (65-115); Osmolality Calculated 310 mOsm/kg (285-295); Potassium 4.7 mmol/L (3.5-5.1); Sodium 141 mmol/L (136-145); Total Bilirubin 0.4 mg/dL (0.15-1.2); Total Protein 5.9 g/dL (6.6-8.7)
[2023-11-23 06:38] LABS: Glucose Point of Care 143 mg/dL (70-110)
--- NOTE | 2023-11-23 06:49 | PM.DCS ---
Discharge Providers Date of Admission: 11/20/23 15:41 Date of Discharge: November 23, 2023 Attending Provider at Admission: Durga Thomas MD Attending Provider at Discharge: Durga Thomas MD Consults: Hospitalist service Primary Care Provider: Juan Thomas DO Diagnoses at Discharge Discharge Diagnosis (1) Critical limb ischemia of left lower extremity with gangrene: Status: Acute (2) Status post above-knee amputation of left lower extremity: Status: Acute (3) Chronic kidney disease: Status: Chronic (4) Type 2 diabetes mellitus with foot ulcer: Status: Chronic (5) HTN (hypertension): Status: Chronic (6) Hyperlipidemia: Status: Chronic (7) Prostatic hypertrophy: Status: Chronic (8) Postoperative anemia: Status: Acute Reason for Visit Reason for Visit: S93.309A, E11.621, I73.9 Hospital Course Hospital Course Mr. Shah is a 78-year-old gentleman who resides in [place], [place]. He has been referred to the [facility] wound care service due to poor healing left great toe with obvious ischemic changes. He had poor Doppler flow by hand-held interrogation, though with a history of chronic renal insufficiency and a creatinine of near 4, we are unable to perform contrast investigations. We continued to treat his left foot wound locally with medical support, though it rapidly progressed to a point of not salvageability. He had chronic ischemic skin changes up to near the knee which did not improve. Therefore, I recommended left above-knee amputation. Rationale for this was carefully and frankly discussed. He stated understanding this was a maneuver to be considered potentially life-saving in relation to his advancing gangrenous changes which now involve the entire forefoot. After careful consideration he separately agreed with plans for convalescence at a local skilled care facility in [place], [place]. He has no immediate family members. His brother from [facility] did visit during his hospitalization. On November 20, Mr. Obrine underwent left above-knee amputation which she tolerated well. I requested the expertise of our hospitalist colleagues to assist with his postoperative management, given his renal insufficiency and diabetes mellitus. He did develop a moderate anemia postoperatively though remains asymptomatic. He is being treated with iron supplementation. Hemovac drain was left in until the end of the second postop day which time it was removed. He had low drainage from this. Incision line is clean, dry, and intact. He is tolerating a diet well. Spann catheter was left in position to accurately report urine output given his renal insufficiency. His creatinine this morning, on the day of discharge, has moderately improved to 3.5. Hemoglobin 7.7. White blood cell count is decreased from 13.5 to 10. We will await evaluations this morning from our hospitalist colleagues prior to discharge, otherwise he will be discharged to local fdc facility in [place], [place]. Discharge instructions have been given. At the time of discharge from my evaluation, he remains in stable condition. Physical Exam HENMT: COMMON NORMALS: normocephalic, atraumatic, hearing grossly normal bilaterally and external ears normal HEAD & SCALP: normocephalic and atraumatic EXTERNAL EAR: Yes external ears normal Chest: COMMONS NORMALS: normal inspection of the chest and normal palpation of entire chest wall Resp: COMMON NORMALS: clear to auscultation bilaterally AUSCULTATION: clear to auscultation bilaterally Cardio: COMMON NORMALS: regular rate, regular rhythm and S1 normal heart sound present RATE: regular rate RHYTHM: regular rhythm HEART SOUNDS: S1 normal heart sound present GI: COMMON NORMALS: Normal to inspection, nondistended, normoactive bowel sounds present Extremity: NARRATIVE EXTREMITY EXAM: Left AKA incision is clean, dry, and intact. Dressings have been changed daily by myself. New dressing was applied after incision line inspection. No evidence for substantial fluid collection. Urinary Catheter Management: Spann: Cath Placed During This Visit: yes Reason for Continuing Indwelling Catheter: Other Urinary Catheter Date of Insertion: 11/20/23 Urinary Catheter Time of Insertion: 11:15 Discharge Data Studies Completed and Pending Pending at discharge Category Date Time Status Blood Culture Stat Lab 11/21/23 11:25 Results Leukocyte Reduced RBC Routine Lab 11/20/23 09:53 Results MAG [Magnesium] AM LABS Lab 11/24/23 04:00 Ordered Type and Screen Routine Lab 11/20/23 09:53 Results Urinalysis Routine Lab 11/20/23 09:13 Uncollected Pathology: Surgical [PTH] Routine Pth 11/20/23 12:51 Received Laboratory Results WBC 10.02 10^3/uL (3.29-11.43) 11/23/23 05:15 RBC 2.45 10^6/uL (3.85-5.65) L 11/23/23 05:15 Hgb 7.70 g/dL (11.27-16.99) L 11/23/23 05:15 Hct 24.8 % (37-53) L 11/23/23 05:15 MCV 101.2 fl (82-101) H 11/23/23 05:15 MCH 31.4 pg (27-33) 11/23/23 05:15 MCHC 31.0 g/dL (30-55) 11/23/23 05:15 RDW 14.0 % (12.1-15.1) 11/23/23 05:15 Plt Count 176 10^3/cmm (157-399) 11/23/23 05:15 MPV 10.5 fL (7.4-10.4) H 11/23/23 05:15 Neut % (Auto) 79.9 % 11/23/23 05:15 Lymph % (Auto) 5.4 % 11/23/23 05:15 [place] % (Auto) 10.5 % 11/23/23 05:15 Eos % (Auto) 0.2 % 11/23/23 05:15 Baso % (Auto) 0.5 % 11/23/23 05:15 Neut # (Auto) 8.01 10^3/uL (1.8-7.7) H 11/23/23 05:15 Lymph # (Auto) 0.5 10^3/uL (0.8-4.8) L 11/23/23 05:15 [place] # (Auto) 1.1 10^3/uL (0.2-0.9) H 11/23/23 05:15 Eos # (Auto) 0.0 10^3/uL (0.0-0.8) 11/23/23 05:15 Baso # (Auto) 0.1 10^3/uL (0.0-0.1) 11/23/23 05:15 Nucleated RBC % (auto) 0 % 11/23/23 05:15 Nucleated RBCs # 0.0 /100WBC 11/23/23 05:15 Sodium 141 mmol/L (136-145) 11/23/23 05:15 Potassium 4.7 mmol/L (3.5-5.1) 11/23/23 05:15 Chloride 108 mmol/L (98-107) H 11/23/23 05:15 Carbon Dioxide 19 mmol/L (22-29) L 11/23/23 05:15 Anion Gap 18.7 (5-19) 11/23/23 05:15 BUN 58 mg/dL (8-23) H 11/23/23 05:15 Creatinine 3.5 mg/dL (0.7-1.2) H 11/23/23 05:15 GFR Calculation Not Reportable 11/23/23 05:15 Glucose 134 mg/dL (65-115) H 11/23/23 05:15 POC Glucose 143 mg/dL (70-110) H 11/23/23 06:34 Calculated Osmolality 310 mOsm/kg (285-295) H 11/23/23 05:15 Calcium 8.7 mg/dL (8.5-10.5) 11/23/23 05:15 Magnesium 2.4 mg/dL (1.7-2.3) H 11/23/23 05:15 Iron 32 ug/dL (59-158) L 11/21/23 05:30 TIBC 177 mcg/dl 11/21/23 05:30 % Saturation 18.0 % (20-50) L 11/21/23 05:30 Unsat Iron Binding 145 ug/dL (112-347) 11/21/23 05:30 Total Bilirubin 0.4 mg/dL (0.15-1.2) 11/23/23 05:15 AST 22 U/L (0-40) 11/23/23 05:15 ALT 7 U/L (0-41) 11/23/23 05:15 Alkaline Phosphatase 94 U/L (40-130) 11/23/23 05:15 Total Protein 5.9 g/dL (6.6-8.7) L 11/23/23 05:15 Albumin 2.9 g/dL (3.5-5.2) L 11/23/23 05:15 Globulin 3.0 g/dL (1.3-4.6) 11/23/23 05:15 Triglycerides 139 mg/dL (0-150) 11/22/23 05:20 Cholesterol 98 mg/dL (0-200) 11/22/23 05:20 LDL Cholesterol, Calc 37 mg/dL (50-129) L 11/22/23 05:20 Total VLDL Cholesterol 28 mg/dL (0-30) 11/22/23 05:20 HDL Cholesterol 33 mg/dL (60-100) L 11/22/23 05:20 Cholesterol/HDL Ratio 2.97 mg/dL (1.0-5.00) 11/22/23 05:20 Vitamin B12 469 pg/mL (232-1245) 11/21/23 05:30 Folate 10.5 ng/mL (4.5-32.2) 11/22/23 05:20 Procalcitonin 0.16 ng/mL (0-0.5) 11/21/23 05:30 TSH 0.66 uIU/mL (0.27-4.20) 11/21/23 05:30 Urine Color Yellow (Yellow) 11/21/23 10:26 Urine Appearance Sl hazy (CLEAR) A 11/21/23 10:26 Urine pH 5 (5-7) 11/21/23 10:26 Ur Specific Omega 1.015 (1.005-1.030) 11/21/23 10:26 Urine Protein 1+ (Negative) H 11/21/23 10:26 Urine Glucose (UA) 4+ (Normal) H 11/21/23 10:26 Urine Ketones Negative (Negative) 11/21/23 10:26 Urine Blood 3+ (Negative) H 11/21/23 10:26 Urine Nitrate Negative (Negative) 11/21/23 10:26 Urine Bilirubin Neg (Negative) 11/21/23 10:26 Urine Urobilinogen Norm mg/dL (Negative) 11/21/23 10:26 Ur Leukocyte Esterase Negative (Negative) 11/21/23 10:26 Urine RBC 5-10 /hpf (0-2) H 11/21/23 10:26 Urine WBC 10-15 /hpf (0-5) H 11/21/23 10:26 Ur Squamous Epith Cells 0-4 /hpf (0-5) H 11/21/23 10:26 Ur Transition Epith Cell 0-4 /hpf 11/21/23 10:26 Amorphous Sediment Trace /hpf 11/21/23 10:26 Urine Bacteria Trace /hpf (NONE) 11/21/23 10:26 Urine Mucus 1+ /hpf 11/21/23 10:26 Blood Type A Positive 11/20/23 09:53 Rho(D) Type Rh positive 11/20/23 09:53 Antibody Screen Negative 11/20/23 09:53 Crossmatch See Detail 11/20/23 09:53 Procedures Performed Left above-knee amputation on November 20, 2023 Vitals Last Vital Signs Temp 98.6 F 11/23/23 04:00 Pulse 103 H 11/23/23 04:00 Resp 18 11/23/23 04:00 BP 138/78 11/23/23 04:00 Pulse Ox 91 11/23/23 04:00 O2 Del Method Room Air 11/23/23 04:00 Discharge Plan Discharge Patient Disposition: Xfer SNF Condition: Stable Prescriptions: New oxycodone-acetaminophen 5-325 mg Tablet 1 tab PO Q6H PRN (Reason: Moderate Pain) Qty: 30 0RF polysaccharide iron complex [Ferrex 150] 150 mg iron Capsule 150 mg PO BIDWM Qty: 60 1RF Continued alogliptin 12.5 mg tablet 12.5 mg PO QDAY atorvastatin 20 mg tablet 20 mg PO QDAY acarbose 25 mg tablet 25 mg PO TID tamsulosin 0.4 mg capsule 0.4 mg PO QDAY amlodipine benzoate 1 100 ml PO DAILY clopidogrel 75 mg tablet 75 mg PO QDAY hydralazine 25 mg tablet 25 mg PO TID cholecalciferol (vitamin D3) [Vitamin D3] 2,000 unit tablet 1,000 unit PO QDAY aspirin [Adult Aspirin Regimen] 81 mg tablet,delayed release (DR/EC) 81 mg PO QDAY clonidine HCl 0.1 mg tablet 0.05 mg PO BID urea 40 % cream 1 applic topical TID Qty: 198 4RF (DME) Compression socks bilaterally See Rx Instructions .Route .MEDSUPPLY Qty: 1 0RF Rx Instructions: As directed mupirocin 2 % ointment 1 applic topical BID 14 Days Qty: 22 2RF ammonium lactate 12 % cream 1 applic topical BID 90 Days Qty: 385 0RF (DME) diabetic shoes with 3 inserts See Rx Instructions .Route .MEDSUPPLY Qty: 1 0RF Rx Instructions: As directed hydrocodone-acetaminophen 5-325 mg tablet 1 tab PO Q6H PRN (Reason: pain) Qty: 14 0RF Advil Dual Action 125-250 mg Tablet 1 tab PO Q8H PRN (Reason: Pain) Discontinued levofloxacin 250 mg tablet 250 mg PO Q48H Qty: 12 0RF Discharge Orders: Discharge Order (Routine); Ordered 11/23/23 Ordered By: Durga Thomas Discharge Diet: Diabetic Discharge Activity: As per PT/OT instructions Patient Instructions: Opioid Safety Activity Restrictions/Additional Instructions: Rehabilitation as directed by the physical therapy department at [facility] left above-knee amputation incision site with Betadine daily and cover daily for next week. If no drainage, may leave open after that. Will plan to leave esvin in place for minimum of 3 to 4 weeks and then may be removed on site or patient may be referred back to our clinic for staple removal. Report any increasing redness, swelling, or drainage from incision line. Discharge Attestations Time Spent in Discharge Care*: less than 30 min Specific Discharge Activities: educating patient, discussing with pcp/other providers, documenting/other paperwork and evaluating patient/reviewing data Status at Discharge: Cognitive status at discharge: cognitively intact, Behavioral status at discharge: cooperative, Functional status at discharge: wheelchair bound, Overall status at discharge: patient has a new baseline Quality Metrics Clinical Quality Measures [ No reported AMI, CVA or VTE this stay] Coding Level of Care Code Acute Code for Chg Fwd Diagnoses Critical limb ischemia of left lower extremity with gangrene I70.262 Status post above-knee amputation of left lower extremity Z89.612 Chronic kidney disease N18.9 Type 2 diabetes mellitus with foot ulcer E11.621; L97.509 HTN (hypertension) I10 Hyperlipidemia E78.5 Prostatic hypertrophy N40.0 Postoperative anemia D64.9
[2023-11-23] MEDS: iron polysaccharide complex 150 mg Capsule PO (08:50)
[2023-11-23] MEDS: amlodipine 5 mg Tablet PO (08:50)
[2023-11-23] MEDS: pantoprazole DR 40 mg Tablet PO (08:50)
[2023-11-23] MEDS: cholecalciferol (vitamin D3) 1,000 unit Tablet 1000 UNIT PO (08:50)
[2023-11-23] MEDS: atorvastatin 40 mg Tablet 20 MG PO (08:50)
[2023-11-23] MEDS: tamsulosin 0.4 mg Capsule PO (08:50)
[2023-11-23] MEDS: aspirin 81 mg EC Tablet PO (08:50)
[2023-11-23] MEDS: insulin lispro 100 unit/1 mL SUBCUT ×2 (08:51→12:07)
--- NOTE | 2023-11-23 08:57 | P.PN_ITS ---
Subjective 2 Subjective: No acute events overnight. Patient has remained hemodynamically stable and afebrile. Pain well-controlled. Plan for discharge today as per primary team to SNF for further rehabilitation. Vitals/I&O/Wt Last Vital Signs Temp 97.9 F 11/23/23 07:57 Pulse 72 11/23/23 07:57 Resp 18 11/23/23 07:57 BP 132/66 11/23/23 07:57 Pulse Ox 94 11/23/23 07:57 O2 Del Method Room Air 11/23/23 04:00 11/22/23 11/23/23 11/23/23 22:59 06:59 14:59 Intake Total 480 / 960 480 / 1440 Output Total 1400 / 1450 1300 / 2750 Balance -920 / -490 -820 / -1310 Weight last 48 hrs Weight 72.178 kg Weight 72.484 kg Physical Exam 2 Narrative: Patient is awake and alert, without acute process. Normocephalic. Extraocular movements are intact. Neck is supple. Lungs are clear to auscultation bilaterally with occasional rhonchi. Cardiovascular exam reveals a regular rate and rhythm. Abdomen is soft, nontender. Extremities with chronic skin changes notable to the right lower extremity. No pitting edema. Left lower extremity status post AKA with Navarro wrap intact, drains noted. Spann catheter is in place. Speech is clear. Urinary Catheter Management: Spann: Cath Placed During This Visit: yes Reason for Continuing Indwelling Catheter: Other Urinary Catheter Date of Insertion: 11/20/23 Urinary Catheter Time of Insertion: 11:15 Data 11/23/23 05:15 11/23/23 05:15 Micro: Microbiology 11/21/23 11:25 Blood Culture - Preliminary Blood NEGATIVE TO DATE 11/21/23 11:18 Blood Culture - Preliminary Blood NEGATIVE TO DATE A&P Assessment and plan (1) Critical limb ischemia of left lower extremity with gangrene: In a patient with known severe peripheral arterial disease related to diabetes and kidney disease who has been followed at wound care clinic for some time for left lower extremity wounds that have been found to have osteomyelitis and gangrenous skin changes. (2) Status post above-knee amputation of left lower extremity: Postop day 1 (3) Chronic kidney disease: Stage IIIb versus stage IV at baseline with creatinine around 4 being normal for him. (4) Type 2 diabetes mellitus with foot ulcer: Type 2 diabetes mellitus, [id number], with chronic kidney disease stage IIIb/IV, peripheral arterial disease and peripheral neuropathy. Chronically on a carbose and alogliptin. (5) HTN (hypertension): Chronically on amlodipine, clonidine, hydralazine (6) Hyperlipidemia: Chronically on atorvastatin (7) Prostatic hypertrophy: Chronically on tamsulosin (8) Postoperative anemia: Plan Plan for the day: Hemoglobin has remained stable. Should be discharged on iron supplementation going forward. Should continue taking blood pressure medications as before. Wound care as per primary team. Thank you for involving us in care of Mr. Shah. Care discussed in detail with nursing at bedside. Discharge medication reconciled. Attestations 2 Medical Necessity Statement*: As per primary team. Diagnoses Critical limb ischemia of left lower extremity with gangrene I70.262 Status post above-knee amputation of left lower extremity Z89.612 Chronic kidney disease N18.9 Type 2 diabetes mellitus with foot ulcer E11.621; L97.509 HTN (hypertension) I10 Hyperlipidemia E78.5 Prostatic hypertrophy N40.0 Postoperative anemia D64.9
[2023-11-23 11:11] LABS: SARS Covid-2 Antigen negative (Negative)
[2023-11-23 11:38] LABS: Glucose Point of Care 182 mg/dL (70-110)
== END 2023-11-23 13:19 | disposition skilled nursing facility (03) | DRG 240 ==
LOC: MEDSURG 17:13
PROVIDERS: Student in an Organized Health Care Education/Training Program; Admitting Provider Thoracic Surgery (Cardiothoracic Vascular Surgery); PCP Emergency Medicine Emergency Medical Services; Visit Provider Thoracic Surgery (Cardiothoracic Vascular Surgery)
PROC: 0Y6D0Z3 Detachment at Left Upper Leg, Low, Open Approach (ICD-10-PCS; CPT 27880; principal; 2023-11-20 10:40)
DX: E11.52 Type 2 diabetes mellitus with diabetic peripheral angiopathy with gangrene (principal); I13.0 Hypertensive heart and chronic kidney disease with heart failure and stage 1 through stage 4 chronic kidney disease, or unspecified chronic kidney disease; M86.9 Osteomyelitis, unspecified; E11.621 Type 2 diabetes mellitus with foot ulcer; L97.529 Non-pressure chronic ulcer of other part of left foot with unspecified severity; Z87.891 Personal history of nicotine dependence; E11.69 Type 2 diabetes mellitus with other specified complication; E11.22 Type 2 diabetes mellitus with diabetic chronic kidney disease; N18.32 Chronic kidney disease, stage 3b; I50.9 Heart failure, unspecified; N40.0 Benign prostatic hyperplasia without lower urinary tract symptoms; Z86.73 Personal history of transient ischemic attack (TIA), and cerebral infarction without residual deficits; K21.9 Gastro-esophageal reflux disease without esophagitis; E11.42 Type 2 diabetes mellitus with diabetic polyneuropathy; M10.9 Gout, unspecified; E78.5 Hyperlipidemia, unspecified; D64.9 Anemia, unspecified
CPT/HCPCS: 36415; 36416; 51702; 80048; 80053; 80061; 81001; 82607; 82746; 82962; 83540; 83550; 83735; 84145; 84443; 85014; 85018; 85025; 86850; 86900; 86920; 87040; 87426; 88307; 88311; 93005; 96372; J0690; J1100; J1815; J2250; J2270; J2704; J2795; J3010; J3370; J7030